=== PATIENT | female | born 1980 | race Caucasian/White ===

== ENCOUNTER 2017-07-30 10:39 | Emergency (ER) | payer OTHER ==
[~2017-07-30] VITALS: Ht 160 cm; Wt 59.1 kg
[~2017-07-30 10:39] MED LIST: CLX20 PO; LEVO1IUD2 INT UTER; OMEP20TA14 PO; RANI150T85 PO
[2017-07-30] MEDS ORDERED: SODIUM CHLORIDE 0.9% 1000ML 1,000 ML IV STA ×2 (10:45)
[2017-07-30 10:52] VITALS: TEMP 36.8; Ht 160 cm; Wt 59.1 kg
[2017-07-30] MEDS ORDERED: METOPROLOL TARTRATE 1 MG/ML VIAL IV STA (10:55)
[2017-07-30 10:59] LABS: BASO % 0.5 %; BASO ABS # 0.04 K/uL (0-0.2); EOS % 1.8 %; EOS ABS # 0.14 K/uL (0-0.5); HEMATOCRIT 43.1 % (37-47); HEMOGLOBIN 15.3 g/dL (12.0-16.0); IG# 0.02 K/uL (0.00-0.02); LYMPH % 22.3 %; LYMPH ABS # 1.72 K/uL (1.2-3.4); MEAN CELL VOLUME 91.1 fL (80-100); MEAN CORPUSCULAR HEMOGLOBIN 32.3 pg (25-34); MEAN CORPUSCULAR HGB CONC 35.5 g/dl (32-36); MEAN PLATELET VOLUME 10.3 fL (7.4-10.4); MONO % 7.8 %; NEUT % 67.3 %; NEUT ABS # 5.19 K/uL (1.4-6.5); PLATELET COUNT 216 K/uL (130-400); RED CELL DISTRIBUTION WIDTH CV 12.5 % (11.5-14.5); RED CELL DISTRIBUTION WIDTH SD 41.9 fL (36.4-46.3); WHITE BLOOD COUNT 7.71 K/uL (4.8-10.8)
[2017-07-30 11:11] LABS: INR 1.1 (0.9-1.1); PTT PATIENT 27.8 SECONDS (21.0-31.0)
--- NOTE | 2017-07-30 11:13 | DIAGNOSTIC IMAGING REPORT ---
CHEST ONE VIEW PORTABLE CLINICAL HISTORY: EVALUATE WEAKNESS dyspnea COMPARISON STUDY: 12/12/2011 FINDINGS: The bones soft tissues and hemidiaphragms are normal. The cardiomediastinal silhouette is normal. The lungs are clear. The pulmonary vasculature is normal. IMPRESSION: Negative chest. The above report was generated using voice recognition software. It may contain grammatical, syntax or spelling errors. Electronically signed by: Stefan Cooper M.D. 07/30/2017 11:12 AM Dictated Date/Time: 07/30/2017 11:11 AM
[2017-07-30 11:17] LABS: ISTAT CREATININE 0.8 mg/dl (0.6-1.3); ISTAT IONIZED CALCIUM 1.1 mmol/l (1.12-1.32); ISTAT POTASSIUM 4.1 mEq/L (3.3-5.0)
[2017-07-30 11:19] LABS: ALBUMIN 3.7 gm/dl (3.4-5.0); ALT/SGPT 22 U/L (12-78); AST/SGOT 15 U/L (15-37); BLOOD UREA NITROGEN 22 mg/dl (7-18); CALCIUM 8.3 mg/dl (8.5-10.1); CARBON DIOXIDE 22 mmol/L (21-32); CREATININE 0.95 mg/dl (0.60-1.20); GLUCOSE 202 mg/dl (70-99); POTASSIUM 3.3 mmol/L (3.5-5.1); SODIUM 134 mmol/L (136-145)
[2017-07-30] MEDS ORDERED: CITA10TA8 PO (11:26)
[2017-07-30 11:30] LABS: ALKALINE PHOSPHATASE 99 U/L (45-117); CKMB 1.2 ng/ml (0.5-3.6)
[2017-07-30] MEDS ORDERED: FENTANYL CITRATE INJ 50 MCG/1 ML 2 ML VIAL ONE (12:45)
[2017-07-30] MEDS ORDERED: MIDAZOLAM HCL 1 MG/ML 2ML VIAL ONE (12:45)
[2017-07-30] MEDS ORDERED: HEPARIN SOD (PORCINE) 1000 UNIT/ML 10 ML VIAL ONE (12:45)
[2017-07-30] MEDS ORDERED: NiCARDipine HCL INJ 2.5 MG/ML 10 ML AMP ONE (12:45)
[2017-07-30] MEDS ORDERED: NITROGLYCERIN/D5W 100MCG/ML 20ML SYR ONE (12:46)
[2017-07-30 12:53] VITALS: O2SAT 100
[2017-07-30] MEDS ORDERED: SODIUM CHLORIDE 0.9% 1000ML 1,000 ML IV SCH ×2 (12:54→13:58)
--- NOTE | 2017-07-30 12:54 | Pre Sedation Assessment ---
Pre Sedation Assessment General Date of Sedation: July 30, 2017. Vital Signs Past 12 Hours Date Time Temp Pulse Resp B/P (MAP) Pulse Ox O2 Delivery O2 Flow Rate FiO2 07/30/17 12:14 84 18 118/71 99 Room Air 07/30/17 11:18 92 16 113/77 100 Room Air 07/30/17 11:14 108 16 109/68 99 Room Air 07/30/17 11:12 99 119/74 07/30/17 10:52 100 Room Air 07/30/17 10:52 100 Room Air 07/30/17 10:52 36.8 112 20 126/80 100 Room Air 07/30/17 10:50 115 Review Cardiovascular: regular rate, rhythm Lungs: chest non-tender Pre-Sedation Airway Assessment Smoking Status: Never Smoker Hx of Sleep Apnea: No Hx of difficult intubation: No Short Thick Neck: No Mallampati Classification: Class II (Sft palate,uvula,fauces visib.) ASA Classification: Class II NPO Status Date of Last Intake of Fluids: July 30, 2017 Time of Last Intake of Fluids: 08:00 Procedure Planning Contraindications for Sedation: None Current Medications Reviewed: Yes Notes The planned sedation has been discussed with the patient. Informed Consent was obtained. I have identified the patient, determined the appropriateness of sedation and have assessed the patient immediately prior to the procedure. All medicine(s) and interventions are by my order.
[2017-07-30] MEDS ORDERED: DC ALL ANTICOAGULANTS ONE (13:00)
--- NOTE | 2017-07-30 13:10 | ECHOCARDIOGRAM REPORT ---
*NOTICE TO RECEIVING [employer] AGENCY This information is strictly Confidential and protected under [place] law. [place] law prohibits you from making any further disclosure of this information unless further disclosure is expressly permitted by the written consent of the person to whom it pertains or is authorized by law. A general authorization for the release of medical or other information is not sufficient for this purpose. Hospital accepts no responsibility if the information is made available to any other person, INCLUDING THE PATIENT. Interpretation Summary * Name: JULIO HOLCOMB Study Date: 07/30/2017 11:22 AM BP: 118/71 mmHg * Patient Location: [facility] HR: 84 * : 1980 (M/d/yyyy) Gender: Female Height: 63 in * Age: 36 yrs Ethnicity: CA Weight: 126 lb * Ordering Physician: Zeke Holman * Performed By: Siomara Lewis RCS * * Reason For Study: Abnormal EKG * BSA: 1.6 m2 * -- Conclusions -- * The left ventricle is normal in size. * There is normal left ventricular wall thickness. * Left ventricular systolic function is normal. * The left ventricular wall motion is normal. * Ejection Fraction = 60-65%. * There is no significant valvular disease * Aortic root is normal in size Procedure Details * A complete two-dimensional transthoracic echocardiogram was performed (2D, M-mode, Doppler and color flow Doppler). Left Ventricle * The left ventricle is normal in size. * There is normal left ventricular wall thickness. * Left ventricular systolic function is normal. * Ejection Fraction = 60-65%. * The left ventricular wall motion is normal. Right Ventricle * The right ventricle is normal in size and function. Atria * The left atrial size is normal. * Right atrial size is normal. * No ASD detected; PFO is not assessed. Mitral Valve * The mitral valve is normal. * There is no mitral valve stenosis. * There is trace mitral regurgitation. Tricuspid Valve * The tricuspid valve is normal. * There is no tricuspid stenosis. * There is trace tricuspid regurgitation. Aortic Valve * The aortic valve is trileaflet. * No hemodynamically significant valvular aortic stenosis. * No aortic regurgitation is present. Pulmonic Valve * The pulmonic valve is not well visualized. Great Vessels * The aortic root is normal size. Pericardium/Pleural * There is no pericardial effusion. Great Vessels * Normal inferior vena cava diameter and respiratory variation suggests normal central venous pressure. MMode 2D Measurements and Calculations IVSd 0.77 cm IVSs 0.99 cm LVIDd 3.9 cm LVIDs 2.5 cm LVPWd 0.75 cm LVPWs 1.1 cm IVS/LVPW 1.0 FS 35.7 % EDV(Teich) 66.7 ml ESV(Teich) 22.8 ml EF(Teich) 65.8 % EDV(cubed) 60.2 ml ESV(cubed) 16.0 ml EF(cubed) 73.4 % % IVS thick 28.7 % % LVPW thick 46.0 % LV mass(C)d 84.0 grams LV mass(C)dI 52.8 grams/m\S\2 LV mass(C)s 68.2 grams LV mass(C)sI 42.9 grams/m\S\2 SV(Teich) 43.9 ml SI(Teich) 27.6 ml/m\S\2 SV(cubed) 44.2 ml SI(cubed) 27.8 ml/m\S\2 Ao root diam 2.8 cm Ao root area 6.2 cm\S\2 ACS 1.1 cm LA dimension 2.6 cm asc Aorta Diam 2.2 cm LA/Ao 0.92 EDV(MOD-sp4) 59.7 ml ESV(MOD-sp4) 16.1 ml EF(MOD-sp4) 73.0 % EDV(MOD-sp2) 56.9 ml ESV(MOD-sp2) 21.2 ml EF(MOD-sp2) 62.8 % SV(MOD-sp4) 43.6 ml SI(MOD-sp4) 27.4 ml/m\S\2 SV(MOD-sp2) 35.7 ml SI(MOD-sp2) 22.5 ml/m\S\2 Doppler Measurements and Calculations MV E max joseph 90.6 cm/sec MV A max joseph 105.7 cm/sec MV E/A 0.86 MV P1/2t max joseph 114.3 cm/sec MV P1/2t 68.8 msec MVA(P1/2t) 3.2 cm\S\2 MV dec slope 486.8 cm/sec\S\2 MV dec time 0.34 sec Ao V2 max 147.3 cm/sec Ao max PG 8.7 mmHg Ao max PG (full) 3.8 mmHg LV V1 max PG 4.9 mmHg LV V1 max 111.1 cm/sec PA V2 max 121.9 cm/sec PA max PG 5.9 mmHg TR max joseph 258.6 cm/sec
[2017-07-30] MEDS ORDERED: METOPROLOL TARTRATE 1 MG/ML VIAL ONE (13:41)
--- NOTE | 2017-07-30 13:41 | CARDIOLOGY CONSULTATION ---
DATE OF CONSULTATION: 07/30/2017 The patient seen and examined in the Emergency Room. PRIMARY CARE PHYSICIAN: Dr. Paige HISTORY OF PRESENT ILLNESS: The patient is a 36-year-old female without a prior cardiac history who per records carries a history of anxiety issues, on chronic Celexa. The patient notes she has been doing very well recently and actually had reduction in anxiolytic therapies, however, notes a recent approximately 1-2 month history of increasing episodes of acute anxiety described as heart pounding in her chest with dizziness and lightheadedness. Symptoms have been interrupting work and becoming more frequent. She notes no overt syncope. Does feel heaviness in her chest when episodes occur. Notes no prior history of cardiac disease. Notes no history of angina or congestive heart failure. Notes no history of rheumatic fever, scarlet fever, renal or hepatic disease. Notes no bleeding difficulties, melena, or hematochezia. The patient today was at work when she suddenly developed lightheadedness and pounding in her chest and was followed by severe heaviness and breathlessness. She was seen very promptly after symptoms. EKG performed demonstrated significant ST depression in inferolateral leads of greater than 2 mm. She was referred to the Emergency Room for further evaluation. Initial EKG demonstrated persistent ST segment changes which resolved on third EKG testing. Initial cardiac enzymes are negative for myocardial infarction or injury. Symptoms resolved on ER presentation without intervention, though she did receive a single dose of IV metoprolol for heart rate control at 2.5 mg. She notes no recent fevers, chills, or sweats. Notes no cough, hoarseness, wheeze, or hemoptysis. Notes no melena or hematochezia. Has been very active as described exercising routinely until the last 2 months , has been a notable decrease in exercise tolerance per the patient. ALLERGIES: CEFTRIAXONE, CLINDAMYCIN. MEDICATIONS: Prior to hospitalization were Celexa 10 mg p.o. every day, Mirena intrauterine device. PAST SURGICAL HISTORY: Notable only for repair of a facial injury as a child. FAMILY HISTORY: Notable for a grandmother with a history of possible premature coronary disease. SOCIAL HISTORY: The patient works as a physician's personalized living assistant. She is a nonsmoker, nondrinker of significance. She is active. PHYSICAL EXAMINATION: VITAL SIGNS: Heart rate is 100, blood pressure is 139/70, O2 saturation is 100% on room air. HEENT EXAMINATION: Normocephalic and atraumatic. Nares without discharge. Throat was clear. NECK: Supple without thyromegaly or lymphadenopathy. There is no jugular venous distention. No carotid bruits. LUNGS: Clear to auscultation. CARDIOVASCULAR EXAMINATION: Regular with normal S1, S2. There is no murmur, gallop, or rub. PMI is nondisplaced. There is no audible murmur or rub. ABDOMEN: Soft, nontender. There is no palpable hepatosplenomegaly, no hepatojugular reflux. EXTREMITIES: Without cyanosis or clubbing. There is no peripheral edema. There are intact distal pulses at 2+/4. There is no abdominal or femoral bruits. NEUROLOGIC: The patient is anxious, but asking questions appropriately. DATA: Laboratory studies performed in the Emergency Room. Initial troponin is negative. White cell count is 7.7, hemoglobin is 15.3. D-dimer is less than 190. TSH is 2.1. HCG is negative. Glucose is mildly elevated at 208. Potassium level was 4.1 with normal renal function. IMPRESSION: This is a 36-year-old female with recent symptoms of heart pounding and palpitations she initially attributed to anxiety issues, now with a profound episode this morning with associated lightheadedness, dizziness, and chest pressure with associated ST depression in inferolateral leads. The patient noted no signs of tachypnea or hyperventilation, no observed tachyarrhythmias were observed other than sinus tachycardia. I discussed the findings in detail with the patient and reviewed echocardiogram in detail with preserved LV function, no acute myocardial infarction, episodic complaints are concerning, especially with decline in exercise capacity. I discussed the options of management. I recommend proceeding with diagnostic cardiac catheterization to exclude ischemic heart disease, of note there is a possibility that this may represent a post-arrhythmia event with a past SVTs, though no documented arrhythmias ever observed or found. The patient is agreeable. We will proceed with a diagnostic cardiac catheterization with medication adjustments will be made depending on results of findings. Procedure and risks explained in detail to the patient and . ARTURO
[2017-07-30] MEDS ORDERED: SODIUM CHLORIDE 0.9% 1000ML 250 ML IV PRN (13:58)
[2017-07-30] MEDS ORDERED: ACETAMINOPHEN 325 MG TAB PO PRN (14:00)
[2017-07-30] MEDS ORDERED: ATROPINE SULFATE 0.1 MG/ML 5ML SYR IV PRN (14:00)
--- NOTE | 2017-07-30 14:03 | [facility] Post Operative Brief Note ---
Preliminary Procedure Note Procedure Date July 30, 2017. Pre-Procedure Diagnosis Cardiothoracic Symptom AUC Score 7 Post-Procedure Diagnosis Normal Coronary Arteries Procedure(s) Performed Coronary Angiography Table Games Floor Supervisor Dr. Panchito Vieyra Apparel Merchandiser(s) Daly Tamayo Estimated Blood Loss <15cc Medication(s) Fentanyl (12.5 mcg IV 3), Heparin, Nicardipine (250 mcg intra-arterial 3), Nitroglycerin (200 mcg intra-arterial 1), Versed (1 mg IV 2), Lidocaine 1% ( Local infiltration) Preliminary Findings Right coronary dominance Normal coronaries with smooth contours Recommendations Medical therapy and/or Counseling Specimens None Fluids (cc crystalloids) 175 cc Anesthesia Start 1324, stop 1350 Procedural Complication(s) None Disposition Plumbing Instructor Holding/Recovery
[2017-07-30] MEDS ORDERED: METO-478 PO (16:22)
--- NOTE | 2017-07-30 16:24 | Discharge Instructions ---
Discharge Instructions Procedure Procedure Date: July 30, 2017. Reason for Visit: Cardiac Assessment. Discharge Discharge Date: July 30, 2017. Discharge Diagnosis: Normal coronary angiogram Last Recorded Wt (Kilograms): 59.100 Anesthesia Post Anesthesia Instructions: If you have had General Anesthesia or IV Sedation: * Do not drive today. * Resume driving when surgeon permits. * Do not make important decisions or sign legal documents today. * Call surgeon for: 1. Temperature elevations greater than 101 degrees F. 2. Uncontrollable pain. 3. Excessive bleeding. 4. Persistent nausea and vomiting. 5. Medication intolerance (nausea, vomiting or rash). * For nausea and vomiting use only clear liquids such as: tea, soda, bouillon until nausea subsides, then gradually increase diet as tolerated. * If you have any concerns or questions, call your surgeon's office. If physician is unavailable and it is an emergency, call 911 or go to the nearest emergency room. Instructions Activity Recommendations: limitations as noted below Return to School/Work: with the following limitations (May return to work on 08/03/2017) Recommended Home Diet: resume previous diet Allergies: Coded Allergies: Ceftriaxone (Verified Allergy, Unknown, ., 09/24/10) Clindamycin (Verified Allergy, Unknown, ., 09/24/10) Provider Instructions ACTIVITY RECOMMENDATIONS: Excess manipulation of the wrist should be avoided for the next 24-48 hours. * No lifting over 2 pounds (approximately a 1/2 gallon of milk) with the utilized arm for 24 hours. * No strenuous activity such as bowling or tennis for 3 days. * Keep the site of the procedure covered with a bandage for 24 hours. *You may shower the day after the procedure. Do not take a tub bath or submerge the puncture site in water for the next 3 days. *Do not operate any motorized equipment for 3 days. SPECIAL CARE INSTRUCTIONS: The site may be slightly bruised and sore following your procedure. Should any of the following occur, contact the DrTyra who performed your procedure. 1. Redness/inflammation, swelling, chills, or fever, or colored drainage at procedure site within 3-7 days after your procedure. 2. Coldness, discoloration, ongoing numbness, severe pain, or swelling. Expect mild tingling of hand and tenderness at the puncture site for up to three days. If this persists beyond three days, or other symptoms develop, notify the Dr. who performed your procedure. BLEEDING: If the procedure site on your wrist begins to bleed, do not panic 1. Place 1 or 2 fingers firmly just slightly above the insertion site to stop the bleeding. You may be able to feel your pulse as you hold pressure. 2. Lift your finger after 5 minutes to see if the bleeding has stopped. 3. Once the bleeding has stopped, gently wipe the wrist area clean with a bandage. * If the bleeding from your wrist does not stop after 10 minutes, or if there is a large amount of bleeding or spurting, call 911 (do not drive yourself to the hospital). SKIN IRRITATION: * You may experience some redness and/or swelling in the area where radiation was administered. If any skin irritation occurs, please contact your family physician. FOLLOW UP VISIT: Keep any scheduled doctor appointments. Follow Up Follow-up with: Dr. Vieyra in 2 weeks hall monitor to be arranged as an outpatient [facility] Recommendations: Call your doctor if: * Temperature above 101 degrees * Pain not relieved by pain medicine ordered * There is increased drainage or redness from any incision * You have any unanswered questions or concerns. Your Doctors Instructions noted above were prepared by provider Panchito Vieyra. Patient Signature Section: Patient Instructions Signature Page Anjana Benson Patient (or Guardian) Signature/Date: I have read and understand the instructions given to me by my caregivers. Caregiver/RN/Doctor Signature/Date: The above-named patient and/or guardian has received patient instructions on this date. + Original Patient Signature Page (only) stays with chart. Please make copy for patient.
[2017-07-30 16:30] VITALS: BP 110/65; PULSE 88; O2SAT 99
[2017-07-30] MEDS ORDERED: METOPROLOL SUCC 25MG EXT REL TAB ONE (16:40)
--- NOTE | 2017-07-30 17:46 | EMERGENCY ROOM VISIT NOTE ---
History Report prepared by [place]: Shashank Dorado Under the Supervision of: Dr. Zeke Holman M.D. First contact with patient: 10:45 Chief Complaint: TACHYCARDIA Stated Complaint: CARDIAC ASSESSMENT History of Present Illness The patient is a 36 year old female who presents to the Emergency Room by EMS with complaints of a near syncopal episode occurring just prior to arrival. She also complains of generalized weakness, chest "pressure" and lightheadedness during the episode. The patient is an O[employer] and was seeing a patient when her symptoms began. Her heart rate was found to be 130 at this time. She then had an ECG which is reported to appear abnormal, and was referred to the ED by cardiology. The patient has a history of anxiety, and states that she feels extremely anxious currently (4/10 in severity). She notes that she has been having increased anxiety every day recently, and is scheduled to see her doctor next month. She has a history of similar symptoms which have been associated with anxiety, but she has a family history of cardiac disease at a young age. Pt denies LOC, headache, fevers, chills, diaphoresis, visual changes, neck pain, tearing pain radiating to the back, personal history or family history of aneurysm or pulmonary embolism, uncontrolled hypertension, breathing difficulties, leg swelling, coagulation abnormalities, prolonged travel, abnormal vaginal bleeding, recent surgery or immobilization, nausea, vomiting, abdominal pain, melena, hematochezia, urinary symptoms, numbness, lymphadenopathy, rash, or other complaints. She has an IUD in place. She notes that she had a brief episode of "sharp" pain to her chest three days ago. Source of History: patient Onset: Just prior to arrival Quality: other (near-syncope) Timing: other (episode) Associated Symptoms: + chest pain ("pressure"), + weakness (generalized) Note: The patient also complains of lightheadedness during the episode. Review of Systems See HPI for pertinent positives and negatives. A total of ten systems were reviewed and were otherwise negative. Past Medical & Surgical Medical Problems: (1) Abdominal pain (2) Anxiety (3) UTI (urinary tract infection) Family History No pertinent family history stated. Social History Smoking Status: Never Smoker Housing Status: lives with family Occupation Status: employed Current/Historical Medications Scheduled Citalopram Hydrobromide (Celexa), 1 TAB PO DAILY Levonorgestrel (Iud) (Mirena), 1 INT UTER CONTINOUS Metoprolol Succinate (Toprol Xl), 12.5 MG PO DAILY Allergies Coded Allergies: Ceftriaxone (Verified Allergy, Unknown, ., 09/24/10) Clindamycin (Verified Allergy, Unknown, ., 09/24/10) Physical Exam Vital Signs Date Time Temp Pulse Resp B/P (MAP) Pulse Ox O2 Delivery O2 Flow Rate FiO2 07/30/17 16:30 88 18 96/62 (73) 99 Room Air 110/65 (80) 07/30/17 16:00 90 18 96/62 (73) 98 Room Air 07/30/17 15:45 90 18 100/52 (68) 98 Room Air 07/30/17 15:30 87 18 97/52 (67) 98 Room Air 07/30/17 15:15 92 18 98/50 (66) 98 Room Air 07/30/17 15:00 94 18 100/51 (67) 98 Room Air 07/30/17 14:45 89 18 94/59 (71) 96 Room Air 07/30/17 14:30 91 18 97/55 (69) 96 Room Air 07/30/17 14:15 92 18 95/54 (68) 96 Room Air 07/30/17 14:00 96 18 97/55 (69) 96 Room Air 07/30/17 13:50 99 18 103/43 (63) 95 Room Air 07/30/17 12:53 113 18 139/71 100 Room Air 07/30/17 12:14 84 18 118/71 99 Room Air 07/30/17 11:18 92 16 113/77 100 Room Air 07/30/17 11:14 108 16 109/68 99 Room Air 07/30/17 11:12 99 119/74 07/30/17 10:52 100 Room Air 07/30/17 10:52 100 Room Air 07/30/17 10:52 36.8 112 20 126/80 100 Room Air 07/30/17 10:50 115 Physical Exam GENERAL: Awake, alert, mildly anxious-appearing, in no distress HENT: Normocephalic, atraumatic. Oropharynx unremarkable. EYES: Normal conjunctiva. Sclera non-icteric. NECK: Supple. No nuchal rigidity. FROM. No masses. No thyromegaly. RESPIRATORY: Clear to auscultation. No wheezes. No rales. Normal respiratory effort. CARDIAC: Borderline tachycardic rate. Normal rhythm. No murmurs. No rubs. Extremities warm and well perfused. Pulses equal. No JVD. GI: Soft, non-distended. No tenderness to palpation. No rebound or guarding. No masses. RECTAL: Deferred. MUSCULOSKELETAL: Atraumatic. Chest examination reveals no tenderness. The back is symmetrical on inspection without obvious abnormality. There is no CVA tenderness to palpation. No joint edema. LOWER EXTREMITIES: Calves are equal size bilaterally and non-tender. No edema. No discoloration. NEURO: Normal sensorium. No sensory or motor deficits noted. SKIN: No rash or jaundice noted. Medical Decision & Procedures ER Provider Diagnostic Interpretation: Radiology results as stated below per my review and radiologist interpretation: CHEST ONE VIEW PORTABLE FINDINGS: The bones soft tissues and hemidiaphragms are normal. The cardiomediastinal silhouette is normal. The lungs are clear. The pulmonary vasculature is normal. IMPRESSION: Negative chest. The above report was generated using voice recognition software. It may contain grammatical, syntax or spelling errors. Electronically signed by: Stefan Cooper M.D. 07/30/2017 11:12 AM Laboratory Results 07/30/17 10:39 Red Blood Count 4.73, Mean Corpuscular Volume 91.1, Mean Corpuscular Hemoglobin 32.3, Mean Corpuscular Hemoglobin Concent 35.5, Mean Platelet Volume 10.3, Neutrophils (%) (Auto) 67.3, Lymphocytes (%) (Auto) 22.3, Monocytes (%) (Auto) 7.8, Eosinophils (%) (Auto) 1.8, Basophils (%) (Auto) 0.5, Neutrophils # (Auto) 5.19, Lymphocytes # (Auto) 1.72, Monocytes # (Auto) 0.60, Eosinophils # (Auto) 0.14, Basophils # (Auto) 0.04 07/30/17 10:39 Test 07/30/17 10:39 07/30/17 11:04 07/30/17 11:42 White Blood Count 7.71 K/uL (4.8-10.8) Red Blood Count 4.73 M/uL (4.2-5.4) Hemoglobin 15.3 g/dL (12.0-16.0) Hematocrit 43.1 % (37-47) Mean Corpuscular Volume 91.1 fL (80-100) Mean Corpuscular Hemoglobin 32.3 pg (25-34) Mean Corpuscular Hemoglobin Concent 35.5 g/dl (32-36) Platelet Count 216 K/uL (130-400) Mean Platelet Volume 10.3 fL (7.4-10.4) Neutrophils (%) (Auto) 67.3 % Lymphocytes (%) (Auto) 22.3 % Monocytes (%) (Auto) 7.8 % Eosinophils (%) (Auto) 1.8 % Basophils (%) (Auto) 0.5 % Neutrophils # (Auto) 5.19 K/uL (1.4-6.5) Lymphocytes # (Auto) 1.72 K/uL (1.2-3.4) Monocytes # (Auto) 0.60 K/uL (0.11-0.59) Eosinophils # (Auto) 0.14 K/uL (0-0.5) Basophils # (Auto) 0.04 K/uL (0-0.2) RDW Standard Deviation 41.9 fL (36.4-46.3) RDW Coefficient of Variation 12.5 % (11.5-14.5) Immature Granulocyte % (Auto) 0.3 % Immature Granulocyte # (Auto) 0.02 K/uL (0.00-0.02) Prothrombin Time 11.1 SECONDS (9.0-12.0) Prothromb Time International Ratio 1.1 (0.9-1.1) Activated Partial Thromboplast Time 27.8 SECONDS (21.0-31.0) Partial Thromboplastin Ratio 1.1 D-Dimer < 190 ug/L FEU (0-500) Est Creatinine Clear Calc Drug Dose 68.3 ml/min Estimated GFR () 89.9 Estimated GFR (Non- 77.6 BUN/Creatinine Ratio 22.9 (10-20) Calcium Level 8.3 mg/dl (8.5-10.1) Magnesium Level 2.1 mg/dl (1.8-2.4) Total Bilirubin 0.7 mg/dl (0.2-1) Direct Bilirubin 0.2 mg/dl (0-0.2) Aspartate Amino Transf (AST/SGOT) 15 U/L (15-37) Alanine Aminotransferase (ALT/SGPT) 22 U/L (12-78) Alkaline Phosphatase 99 U/L (45-117) Total Creatine Kinase 55 U/L (26-192) Creatine Kinase MB 1.2 ng/ml (0.5-3.6) Creatine Kinase MB Ratio 2.2 (0-3.0) Troponin I < 0.015 ng/ml (0-0.045) Total Protein 7.0 gm/dl (6.4-8.2) Albumin 3.7 gm/dl (3.4-5.0) Thyroid Stimulating Hormone (TSH) 2.170 uIu/ml (0.300-4.500) Human Chorionic Gonadotropin, Qual NEG (NEG) Bedside Hemoglobin 13.9 g/dl (12.0-16.0) Bedside Hematocrit 41 % (37-47) Bedside Sodium 139 mEq/L (135-144) Bedside Potassium 4.1 mEq/L (3.3-5.0) Bedside Chloride 102 mEq/L (101-112) Bedside Total CO2 24 mEq/l (24-31) Anion Gap 17.0 mmol/L (16-25) Bedside Blood Urea Nitrogen 27 mg/dl (7-18) Bedside Creatinine 0.8 mg/dl (0.6-1.3) Bedside Glucose (other) 208 mg/dl (70-99) Bedside Ionized Calcium (Elisha) 1.10 mmol/l (1.12-1.32) Urine Color YELLOW Urine Appearance CLEAR (CLEAR) Urine pH 6.0 (4.5-7.5) Urine Specific [place] 1.019 (1.000-1.030) Urine Protein NEG (NEG) Urine Glucose (UA) NEG (NEG) Urine Ketones NEG (NEG) Urine Occult Blood NEG (NEG) Urine Nitrite NEG (NEG) Urine Bilirubin NEG (NEG) Urine Urobilinogen NEG (NEG) Urine Leukocyte Esterase NEG (NEG) Laboratory results reviewed by me Medications Administered Medications (Trade) Dose Ordered Sig/Nubia Route Start Time Stop Time Status Last Admin Dose Admin Sodium Chloride 1,000 ml @ 125 mls/hr Q8H STAT IV 07/30/17 10:45 07/30/17 17:12 DC 07/30/17 12:22 125 MLS/HR Sodium Chloride 1,000 ml @ 999 mls/hr Q1H1M STAT IV 07/30/17 10:45 07/30/17 11:45 DC 07/30/17 11:12 999 MLS/HR Metoprolol Tartrate (Lopressor Iv) 2.5 mg NOW STAT IV 07/30/17 10:55 07/30/17 10:57 DC 07/30/17 11:12 2.5 MG Midazolam HCl (Versed Inj) 2 mg STK-MED ONCE .ROUTE 07/30/17 12:45 07/30/17 12:46 DC 07/30/17 12:45 2 MG Fentanyl Citrate (Fentanyl Inj) 100 mcg STK-MED ONCE .ROUTE 07/30/17 12:45 07/30/17 12:46 DC 07/30/17 12:45 37.5 MCG Heparin Sodium (Porcine) (Heparin Iv Bolus) 10,000 unit STK-MED ONCE .ROUTE 07/30/17 12:45 07/30/17 12:46 DC 07/30/17 12:45 5,000 UNIT Metoprolol Tartrate (Lopressor Iv) 5 mg STK-MED ONCE .ROUTE 07/30/17 13:41 07/30/17 13:42 DC 07/30/17 13:41 2.5 MG ECG Per My Interpretation Indication: other (near-syncope) Rate (beats per minute): 113 Rhythm: sinus tachycardia Findings: nonspecific-ST abn, ST depression (mild, inferior and anterolateral) Comparison ECG Date: Pre-hospital Change: ST elevations in V1 and V2 have resolved. ST segments now appears less depressed. Repeat ECG shows a normal sinus rhythm with a rate of [address] elevations, or PVCs seen. Resolution of ST depressions compared with prior ECG. ED Course 1049: The patient was evaluated in room B8. A complete history and physical exam was performed. Ordered Sodium Chloride 1000 ml @ 125 mls/hr IV, Sodium Chloride 1000 ml @ 999 mls/hr IV. 1055: Ordered Lopressor 2.5 mg IV. 1152: I checked in on the patient. She is currently having her echocardiogram done. She is feeling better. 1207: I spoke with Dr. Vieyra at bedside. He is seeing the patient. 1254: Ordered Sodium Chloride 1000 ml @ 50 mls/hr IV. 1305: The patient was taken to the clinical laboratory technologist by Dr. Vieyra of Cardiology. Medical Decision Prior records/ancillary studies reviewed. Triage Nursing notes reviewed and agree them. Additional history obtained from cardiology. The patient's history was concerning for palpitations and abnormal ECG. Differential diagnosis: Etiologies such as electrolyte abnormality, cardiac dysrhythmia, thyroid dysfunction, pulmonary embolism, infection, gastrointestinal, as well as others were entertained. Physical examination: Benign as above. ER treatment provided: Cardiac monitoring. Normal saline hydration IV Lopressor 2.5 mg On reassessment the patient felt better. Diagnostic interpretation by me: The electrocardiogram reviewed from the clinic was very concerning for ST segment changes. ST segments were much improved here. Repeat ECG here showed resolution. The labs revealed an unremarkable CBC, chemistry panel, cardiac markers and d- dimer. Imaging studies: Chest x-ray as above. Consultation: A consultation was placed with [facility], Dr. Vieyra. The case was discussed and diagnostics were reviewed. The patient was evaluated in the ER for further treatment. Medication Reconcilliation Current Medication List: was personally reviewed by me Blood Pressure Screening Patient's blood pressure: Normal blood pressure Blood pressure disposition: Did not require urgent referral Consults Time Called: 1102 Consulting Physician: Dr. Vieyra - Cardiology Returned Call: [phone] Discussed the patient's case. An echocardiogram was ordered for the patient. Dr. Vieyra will come evaluate the patient in the ED after he finishes his current procedure. Impression Primary Impression: Tachycardia Additional Impression: Acute electrocardiogram changes Scribe Attestation The scribe's documentation has been prepared under my direction and personally reviewed by me in its entirety. I confirm that the note above accurately reflects all work, treatment, procedures, and medical decision making performed by me. Departure Information Dispostion Other (Taken to the clinical laboratory technologist) Prescriptions Metoprolol Succinate (TOPROL XL) 25 Mg Tab 12.5 MG PO DAILY for 30 Days, #15 TAB Prov: Panchito Vieyra M.D. 07/30/17 Referrals Mohsen Figueroa D.O. (PCP) Patient Instructions My [facility] [address] Problem Qualifiers
--- NOTE | 2017-07-31 01:23 | CARDIAC CATH REPORT ---
PRIMARY CARE PHYSICIAN: Dr. Paige. INDICATIONS: Acute chest pain with dynamic ST segment changes. PROCEDURE: Coronary angiography. BRIEF CARDIAC HISTORY: The patient is a 36-year-old female who suffered acute onset tachy-palpitation, chest heaviness and pressure with associated inferolateral ST depression greater than 2 mmHg while at work and in ER. EKG abnormalities are normalized with 2.5 mg IV metoprolol and slowing of heart rate. The patient has had episodic events similar to this with substantial decline in functional capacity now class 2-3, given persistent symptoms, dynamic ST segment changes and recurrent events. The patient is referred for diagnostic cardiac catheterization to exclude underlying ischemic heart disease, preserved ejection fraction noted on echocardiogram prior to procedure. ACCESS: Right radial artery. CATHETERS: A 6-[place] short glide sheath, 5-[place] JL 3.5, 5-[place] JR 5. CONTRAST: Nonionic x64 mL. IV FLUIDS: 175 mL normal saline. SEDATION: Start time 1324, end time 1350. SUPERVISING: William Centeno RN. MEDICATIONS: The patient received for sedation 1 mg IV Versed x2 and fentanyl 12.5 mcg x3. Local access site was anesthetized locally with 1% lidocaine. After arterial sheath was inserted, the patient received 250 mcg of nicardipine. This was repeated twice more with an additional 200 mcg of intra-arterial nitroglycerin due to mild forearm arterial spasm. RADIATION EXPOSURE: 3.4 minutes of fluoroscopy time, 267 milligrays, DAP score 1630. RESULTS: CORONARY ANGIOGRAPHY: Coronary anatomy is right dominant. LEFT MAIN: Left main is of normal length and caliber and trifurcates to give rise to left anterior descending, a large ramus intermedius and left circumflex. There is no disease in the left main. LEFT ANTERIOR DESCENDING: Left anterior descending is type 3 in distribution, gives rise to 2 small diagonal poor inches in its mid portion. Two large septal branches. There is no disease in the left anterior descending. LEFT CIRCUMFLEX: Left circumflex consists of a single obtuse marginal and is free of disease. RIGHT CORONARY ARTERY: The right coronary artery is dominant in distribution, modest in caliber and gives rise to a right ventricular branch, early takeoff posterior descending artery and 2 small posterior ventricular branches. There is no disease in the right coronary artery. LEFT VENTRICULAR ANGIOGRAPHY: Not performed. HEMODYNAMICS: Initial aortic root pressure is 102/56 with a mean of 74. Following completion of study and medication administration, final pressure was 85/59 with a mean of 71. Of note, the patient was relatively tachycardic throughout the procedure and did receive a 2.5 mg IV metoprolol in addition to above medications for rate control. FINAL IMPRESSION: 1. Normal right dominant coronary anatomy. 2. Sinus tachycardia. MTDD
[2017-07-31] MEDS ORDERED: METO25TA3 PO (05:08)
[2017-07-31] MEDS ORDERED: POTA10CA28 PO (15:43)
[2017-08-01] MEDS ORDERED: METO25TA3 PO (16:47)
== END 2017-07-30 16:36 | disposition home or self-care (01) ==
LOC: EDBD 10:39 → C.EDB 10:41
DX: R00.0 Tachycardia, unspecified (principal); R94.31 Abnormal electrocardiogram [ECG] [EKG]; Z79.899 Other long term (current) drug therapy; Z88.1 Allergy status to other antibiotic agents; Z82.49 Family history of ischemic heart disease and other diseases of the circulatory system

== ENCOUNTER 2017-07-31 03:19 | Observation (INO) | payer OTHER ==
[~2017-07-31] VITALS: Ht 160 cm; Wt 56.0 kg
[~2017-07-31 03:19] MED LIST changes: +CITA10TA8 PO; -CLX20 PO; +METO-478 PO; -OMEP20TA14 PO; -RANI150T85 PO
[2017-07-31] MEDS ORDERED: LORAZEPAM 2 MG/ML 1 ML VIAL IV STA (03:44)
[2017-07-31] MEDS ORDERED: SODIUM CHLORIDE 0.9% 1000ML 1,000 ML IV ONE (03:45)
[2017-07-31 04:32] LABS: BASO % 0.4 %; BASO ABS # 0.03 K/uL (0-0.2); EOS % 0.6 %; EOS ABS # 0.05 K/uL (0-0.5); HEMATOCRIT 44.5 % (37-47); HEMOGLOBIN 15.9 g/dL (12.0-16.0); IG# 0.01 K/uL (0.00-0.02); LYMPH % 16.7 %; LYMPH ABS # 1.33 K/uL (1.2-3.4); MEAN CORPUSCULAR HEMOGLOBIN 32.5 pg (25-34); MEAN CORPUSCULAR HGB CONC 35.7 g/dl (32-36); MEAN PLATELET VOLUME 10.3 fL (7.4-10.4); MONO % 7.7 %; MONO ABS # 0.61 K/uL (0.11-0.59); NEUT % 74.5 %; NEUT ABS # 5.92 K/uL (1.4-6.5); PLATELET COUNT 202 K/uL (130-400); RED CELL DISTRIBUTION WIDTH CV 12.5 % (11.5-14.5); RED CELL DISTRIBUTION WIDTH SD 41.8 fL (36.4-46.3); WHITE BLOOD COUNT 7.95 K/uL (4.8-10.8)
[2017-07-31] MEDS ORDERED: OPTIRAY 320 IV PRN (05:00)
[2017-07-31] MEDS ORDERED: METO25TA3 PO (05:08)
[2017-07-31 05:09] LABS: ALBUMIN 4.1 gm/dl (3.4-5.0); CALCIUM 8.5 mg/dl (8.5-10.1); CREATININE 0.82 mg/dl (0.60-1.20)
[2017-07-31 05:12] LABS: TOTAL PROTEIN 7.3 gm/dl (6.4-8.2)
[2017-07-31 05:23] LABS: PTT PATIENT 28.7 SECONDS (21.0-31.0)
[2017-07-31] MEDS ORDERED: PROCHLORPERAZINE INJ 5 MG in SYRINGE 4 ML IV PRN (05:30)
[2017-07-31] MEDS ORDERED: LORAZEPAM 2 MG/ML 1 ML VIAL IV PRN (05:30)
[2017-07-31] MEDS ORDERED: TRAMADOL HCL 50 MG TAB PO PRN (05:30)
[2017-07-31] MEDS ORDERED: hydrOXYzine HCL 10 MG TAB PO PRN (05:30)
[2017-07-31] MEDS ORDERED: ACETAMINOPHEN 325 MG TAB PO PRN (05:30)
[2017-07-31] MEDS ORDERED: MoRPHine SULFATE 2 MG/ML CARP IV PRN (05:30)
[2017-07-31] MEDS ORDERED: POTASSIUM CHLORIDE 10 MEQ TABCR PO STA (05:34)
[2017-07-31] MEDS ORDERED: METOPROLOL SUCC 25MG EXT REL TAB PO STA (05:35)
[2017-07-31 06:00] VITALS: BP 114/69; PULSE 92; TEMP 36.8; O2SAT 98; Ht 160 cm; Wt 56.0 kg
[2017-07-31] MEDS ORDERED: IV FLUIDS COMPLETED PRN (06:00)
--- NOTE | 2017-07-31 06:19 | EMERGENCY ROOM VISIT NOTE ---
History First contact with patient: 03:28 Chief Complaint: CHEST PAIN Stated Complaint: PALPITATIONS Nursing Triage Summary: Pt arrives into room with left side chest pressure, weakness. Pt was at home trying to rest, states she hasn't been able to sleep, "too anxious." Developed left side chest pressure/dizziness, felt her heart beating rapidly. Pt was at work this morning and felt SOB/weakness/dizziness/faint, came to ER, was in SVT. Seen by cardio and had cardiac catheterization and echo-negative results. Pt shaking in room, states she gets very anxious. Was told to come back in if symptoms came back. History of Present Illness The patient is a 36 year old female who presents to the Emergency Room with complaints of left-sided chest pain and palpitations that began less than 1 hour ago. The patient has had a recent significant cardiac workup after similar symptoms yesterday. 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 She began having chest discomfort symptoms while at work, and went to the cardiology suite, where her EKG was abnormal. The patient was sent to the ER for further care and evaluation. She ultimately had essentially negative labs, negative echocardiogram, and negative cardiac catheterization. The patient went home and was doing well after the workup, however her symptoms returned tonight and seem worse than previous. The patient has not had fever or chills. She is not having nausea, vomiting, or abdominal pain. She rates her discomfort a 6/10. She reports a history of anxiety in the past, but is otherwise healthy. She rates her discomfort a 5/10. Review of Systems More than 10 systems were reviewed and otherwise negative with the exception of history of present illness. Past Medical/Surgical History Medical Problems: (1) Abdominal pain (2) Anxiety (3) Palpitations (4) UTI (urinary tract infection) Family History History of premature cardiac disease Social History Smoking Status: Never Smoker Housing Status: lives with family Occupation Status: employed Current/Historical Medications Scheduled Citalopram Hydrobromide (Celexa), 10 MG PO DAILY Levonorgestrel (Iud) (Mirena), 1 INT UTER CONTINOUS Metoprolol Succ (Toprol Xl) (Toprol-Xl), 12.5 MG PO DAILY Physical Exam Vital Signs Date Time Temp Pulse Resp B/P (MAP) Pulse Ox O2 Delivery O2 Flow Rate FiO2 5/4/18 04:29 93 07/31/17 04:19 89 24 07/31/17 04:00 108/71 07/31/17 03:46 98 Room Air 07/31/17 03:30 120/67 07/31/17 03:24 36.8 120 19 125/80 96 Room Air Physical Exam VITALS: Vitals are noted on the nurse's note and reviewed by myself. Vital signs with tachycardia GENERAL: Well-developed, well-nourished, anxious appearing female who appears mildly uncomfortable on examination. NECK: Supple without nuchal rigidity. No lymphadenopathy. No thyromegaly. Cervical spine is nontender. HEART: Tachycardic rate with regular rhythm LUNGS: Clear to auscultation bilaterally without wheezes, rales or rhonchi. No retractions or accessory muscle use. ABDOMEN: Positive normal bowel sounds x 4. Soft, nontender, without masses or organomegaly. No guarding or rebound tenderness. MUSCULOSKELETAL: No muscle atrophy, erythema, or edema noted. Full range of motion in all extremities. NEURO: Patient was alert and oriented to person place and time. CN II through XII grossly intact. Medical Decision & Procedures ER Provider Diagnostic Interpretation: Preliminary Findings Only See Final Report For Complete Findings CTA CHEST: No evidence of PE. Lungs are clear. No pleural effusions. No adenopathy. Heart size is normal. Aorta is unremarkable. Laboratory Results 07/31/17 03:30 Red Blood Count 4.89, Mean Corpuscular Volume 91.0, Mean Corpuscular Hemoglobin 32.5, Mean Corpuscular Hemoglobin Concent 35.7, Mean Platelet Volume 10.3, Neutrophils (%) (Auto) 74.5, Lymphocytes (%) (Auto) 16.7, Monocytes (%) (Auto) 7.7, Eosinophils (%) (Auto) 0.6, Basophils (%) (Auto) 0.4, Neutrophils # (Auto) 5.92, Lymphocytes # (Auto) 1.33, Monocytes # (Auto) 0.61, Eosinophils # (Auto) 0.05, Basophils # (Auto) 0.03 07/31/17 03:30 Test 07/31/17 03:30 07/31/17 03:37 07/31/17 04:11 07/31/17 04:28 White Blood Count 7.95 K/uL (4.8-10.8) Red Blood Count 4.89 M/uL (4.2-5.4) Hemoglobin 15.9 g/dL (12.0-16.0) Hematocrit 44.5 % (37-47) Mean Corpuscular Volume 91.0 fL (80-100) Mean Corpuscular Hemoglobin 32.5 pg (25-34) Mean Corpuscular Hemoglobin Concent 35.7 g/dl (32-36) Platelet Count 202 K/uL (130-400) Mean Platelet Volume 10.3 fL (7.4-10.4) Neutrophils (%) (Auto) 74.5 % Lymphocytes (%) (Auto) 16.7 % Monocytes (%) (Auto) 7.7 % Eosinophils (%) (Auto) 0.6 % Basophils (%) (Auto) 0.4 % Neutrophils # (Auto) 5.92 K/uL (1.4-6.5) Lymphocytes # (Auto) 1.33 K/uL (1.2-3.4) Monocytes # (Auto) 0.61 K/uL (0.11-0.59) Eosinophils # (Auto) 0.05 K/uL (0-0.5) Basophils # (Auto) 0.03 K/uL (0-0.2) RDW Standard Deviation 41.8 fL (36.4-46.3) RDW Coefficient of Variation 12.5 % (11.5-14.5) Immature Granulocyte % (Auto) 0.1 % Immature Granulocyte # (Auto) 0.01 K/uL (0.00-0.02) Activated Partial Thromboplast Time 28.7 SECONDS (21.0-31.0) Partial Thromboplastin Ratio 1.1 Anion Gap 6.0 mmol/L (3-11) Est Creatinine Clear Calc Drug Dose 79.2 ml/min Estimated GFR () 107.5 Estimated GFR (Non- 92.7 BUN/Creatinine Ratio 11.2 (10-20) Calcium Level 8.5 mg/dl (8.5-10.1) Magnesium Level 2.1 mg/dl (1.8-2.4) Total Bilirubin 1.1 mg/dl (0.2-1) Aspartate Amino Transf (AST/SGOT) 13 U/L (15-37) Alanine Aminotransferase (ALT/SGPT) 22 U/L (12-78) Alkaline Phosphatase 83 U/L (45-117) Total Protein 7.3 gm/dl (6.4-8.2) Albumin 4.1 gm/dl (3.4-5.0) Globulin 3.2 gm/dl (2.5-4.0) Albumin/Globulin Ratio 1.3 (0.9-2) Thyroid Stimulating Hormone (TSH) 3.700 uIu/ml (0.300-4.500) Lyme Disease IgG Antibody NEG (NEG) Lyme Disease IgM Antibody NEG (NEG) Bedside D-Dimer 254 ng/mlFEU (0-450) Bedside Troponin I < 0.030 ng/ml (0-0.045) Urine Color YELLOW Urine Appearance CLEAR (CLEAR) Urine pH 6.5 (4.5-7.5) Urine Specific Loraine 1.013 (1.000-1.030) Urine Protein NEG (NEG) Urine Glucose (UA) NEG (NEG) Urine Ketones TRACE (NEG) Urine Occult Blood NEG (NEG) Urine Nitrite NEG (NEG) Urine Bilirubin NEG (NEG) Urine Urobilinogen NEG (NEG) Urine Leukocyte Esterase TRACE (NEG) Urine WBC (Auto) 1-5 /hpf (0-5) Urine RBC (Auto) 0-4 /hpf (0-4) Urine Hyaline Casts (Auto) 0 /lpf (0-5) Urine Epithelial Cells (Auto) 20-30 /lpf (0-5) Urine Bacteria (Auto) NEG (NEG) Urine Test NEG (NEG) Urine Opiates Screen NEG (NEG) Urine Methadone, Qualitative NEG (NEG) Urine Barbiturates NEG (NEG) Urine Phencyclidine (PCP) Level NEG (NEG) Ur Amphetamine/Methamphetamine NEG (NEG) MDMA (Ecstasy) Screen NEG (NEG) Urine Benzodiazepines Screen POS (NEG) Urine Cocaine Metabolite NEG (NEG) Urine Marijuana (THC) NEG (NEG) Medications Administered Medications (Trade) Dose Ordered Sig/Nubia Route Start Time Stop Time Status Last Admin Dose Admin Sodium Chloride 1,000 ml @ 999 mls/hr Q1H1M ONCE IV 07/31/17 03:45 07/31/17 04:45 DC 07/31/17 03:54 999 MLS/HR Lorazepam (Ativan Inj) 0.5 mg NOW STAT IV 07/31/17 03:44 07/31/17 03:48 DC 07/31/17 03:54 0.5 MG ECG Per My Interpretation Change: Sinus tachycardia @105 bpm Possible Left atrial enlargement Nonspecific ST abnormality Abnormal ECG When compared with ECG of 30-JUL-2017 12:12, ST now depressed in Inferior leads ST now depressed in Lateral leads Nonspecific T wave abnormality now evident in Inferior leads ED Course Physical exam and history were performed. Nursing notes, EMR, and Medication List were personally reviewed. Patient appears to have left-sided chest pain symptoms. EKG was performed and has diffuse ST depression concerning for ischemia especially when compared to previous EKG about 15 hours ago. IV access was established and labs are obtained. The patient was hydrated and medicated as above. The case was discussed with my attending physician, Dr. Damon, who remain closely involved in care and decision-making. Upon evaluating the patient I did contact [facility] cardiology, and spoke directly with Dr. Vieyra. We will ultimately be admitting the patient for further care management, and Dr. Viyera recommended CT angiogram as well as catecholamine blood work. The patient's blood work is as above and was reviewed. She does not have a significantly elevated white blood cell count, gross anemia, bandemia, or significant electrolyte imbalance. Lipase and transaminases are not diagnostic. Lyme disease is negative. Urine is without . Drug of abuse screen is negative. Troponin is negative. CT scan of the chest does not show acute pulmonary etiology for her symptoms. On reevaluation the patient did feel improved after hydration and Ativan. A repeat EKG was performed and was similar, although improving compared to the initial EKG. I discussed the case with Dr Vuong, [facility] hospitalist, who agreed to evaluate the patient here in the department. Please see Dr. Younger's dictation for further patient course, plan, and disposition. The chart was completed utilizing [employer] Speech Voice Recognition Software. Grammatical errors, random word insertions, pronoun errors, and incomplete sentences are an occasional consequence of this system due to software limitations, ambient noise, and hardware issues. Any formal questions or concerns about the content, text, or information contained within the body of this dictation should be directly addressed to the provider for clarification. . Medical Decision Differential diagnosis includes, but is not limited to: Myocardial infarction, dysrhythmia, pericarditis, pneumothorax, aortic aneurysm/dissection, DVT/PE, anxiety, GERD, PUD, electrolyte imbalance, thyroid disorder, pneumonia, bronchitis, pancreatitis, and others Impression Primary Impression: Left sided chest pain Additional Impression: Acute electrocardiogram changes Departure Information Referrals Savage Paige M.D. (PCP) Patient Instructions [facility] Problem Qualifiers
[2017-07-31] MEDS ORDERED: NSS + 20MEQ KCL 1000ML 1,000 ML IV ONE (06:30)
--- NOTE | 2017-07-31 07:14 | DIAGNOSTIC IMAGING REPORT ---
SINGLE VIEW CHEST CLINICAL HISTORY: Atypical chest pain. FINDINGS: An AP, portable, upright chest radiograph is compared to study dated 07/30/2017. The examination is degraded by portable technique and apical lordotic positioning. The cardiomediastinal silhouette is unremarkable. The lungs appear hyperinflated but are otherwise clear. No large pleural effusion or pneumothorax is seen. The bony thorax is grossly intact. IMPRESSION: No active disease in the chest. Electronically signed by: Jose Pino M.D. 07/31/2017 7:12 AM Dictated Date/Time: 07/31/2017 7:12 AM
--- NOTE | 2017-07-31 07:52 | DIAGNOSTIC IMAGING REPORT ---
CT ANGIOGRAM OF THE CHEST CLINICAL HISTORY: Atypical chest pain. COMPARISON STUDY: Chest x-ray dated 07/31/2017. TECHNIQUE: Following the IV administration of 93 cc of Optiray 320, CT angiogram of the chest was performed from the upper abdomen to the thoracic inlet utilizing the pulmonary embolus protocol. Images are reviewed in the axial, sagittal, and coronal planes. 3-D MIPS images are created and assessed. IV contrast was administered without complication. A dose lowering technique was utilized adhering to the principles of ALARA. CT DOSE: 256.51 mGy.cm FINDINGS: Thyroid: Imaged portions of the thyroid gland are normal in size and attenuation. Thoracic aorta: The thoracic aorta is normal in caliber and demonstrates standard 3-vessel arch anatomy. No dissection is seen. Pulmonary vasculature: The pulmonary trunk is normal in caliber. There are no filling defects identified in main, lobar, or segmental pulmonary branches to suggest pulmonary embolus. Heart: The heart is normal in size and configuration, and without pericardial effusion. Lungs and pleural spaces: Small Bochdalek hernias are present at both lung bases. The lungs and pleural spaces are otherwise clear. The trachea and central airways are clear. Mediastinum: There is no mediastinal lymphadenopathy. Arpita: Clear. Axillae: There is no axillary lymphadenopathy. Upper abdomen: Partially visualized upper abdominal viscera is within normal limits. Skeletal structures: No lytic or blastic bony lesions are seen. IMPRESSION: 1. There is no evidence of pulmonary embolus in the main, lobar, or segmental pulmonary arteries. 2. The lungs are clear. Electronically signed by: Jose Pino M.D. 07/31/2017 7:50 AM Dictated Date/Time: 07/31/2017 7:13 AM
[2017-07-31 08:00] VITALS: O2SAT 98
[2017-07-31] MEDS ORDERED: POTASSIUM CHLORIDE 10 MEQ TABCR PO ONE (08:00)
[2017-07-31 08:03] VITALS: BP 93/55; PULSE 86; TEMP 36.9; O2SAT 96
[2017-07-31] MEDS: CITALOPRAM 20 MG TAB PO SCH ×2 (08:13→10:34)
--- NOTE | 2017-07-31 09:37 | HISTORY & PHYSICAL EXAMINATION ---
DATE OF ADMISSION: 07/31/2017 PRIMARY CARE DOCTOR: Dr. Paige. CHIEF COMPLAINT: Chest pressure as per the patient. HISTORY OF PRESENT ILLNESS: History obtained from the patient and records. Medical history significant for anxiety, gastritis as per records, Raynaud disease. In the last 2 months, the patient noted episodic palpitations corresponding with dizziness, lightheadedness, chest heaviness, spontaneously resolving. Patient admits to more anxiety than usual with work and home stress. No fever, no chills, no inordinate caffeine intake or alcohol intake. 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 She was seen at the Cardiology clinic. She was noted to have ST depression in inferolateral leads. Patient sent to the Emergency Room for evaluation. Patient evaluated by [facility] cardiology in the ER. 2D echo showed EF of 55 %, normal LV wall motion. Patient had normal coronaries on cardiac catheterization. Symptoms attributed to anxiety. Patient discharged on Toprol-XL. Zio patch monitoring to be arranged as outpatient. At home, poor appetite. She was in bed last night when she had more pronounced palpitations, left-sided chest pressure with radiation to the left arm. Some shortness of breath, no cough symptoms. Patient brought to the Emergency Room. Noted to be tachycardic. Some improvement of symptoms with IV lorazepam and IVF MEDICAL HISTORY: As above. Cut down on dosage of mood/anxiety pill Celexa to 10 mg in the last few months because of desire to undergo after she gets by the end of the year. SURGICAL HISTORY: She has had facial reconstruction after an animal bite from childhood and dental surgery. MEDICATIONS: Home medications are Celexa, Mirena IUD. ALLERGIES: ALLERGIC TO CLINDAMYCIN AND CEFTRIAXONE. FAMILY HISTORY: There is a family history of heart disease, breast cancer, cervical cancer. PERSONAL/SOCIAL HISTORY: Nonsmoker. No EtOH intake. Currently works as a physician social and human services assistant. REVIEW OF SYSTEMS: As per HPI. All other 10 systems reviewed, all other ROS negative. PHYSICAL EXAMINATION: VITAL SIGNS: Blood pressure was noted to be 125/80, pulse rate 120 later 90, RR 19, temperature 36.8, saturations 97%. GENERAL: Noted to be anxious, in no acute distress. SKIN: Normal color, warm. HEENT: Riva palpebral conjunctivae. No ptosis. Dry oral mucosa. NECK: Supple. No tenderness. HEART: Regular rate and rhythm, no murmur. ABDOMEN: Some distention. Nontender. EXTREMITIES: No edema noted. No tenderness, no gross deformities NEUROLOGIC: Coherent, no facial asymmetry LABORATORY DATA: Hemoglobin was noted to be 15.9, hematocrit 45.4, white cells 11.9, platelets noted to be 202. Sodium 139, potassium 3 CO2 of 24, BUN 9, creatinine 0.8, glucose was noted to be 117. Troponin 0.03. TSH normal UA ketones. EKG as per my interpretation, rate 95, normal sinus rhythm, incomplete right bundle-branch block, nonspecific ST T wave abnormalities. CT-PE study, initial read, no acute pathology. ASSESSMENT: 1. Chest pressure, palpitations Likely secondary to anxiety. Hypokalemia. clinical dehydration contributory to cardiac symptoms. 2. Hyperglycemia Rule out DM PLAN: Observation PCU. Anxiolytic as needed Facilitate a.m. Toprol IV fluids. Replace potassium. Rest of management as per Cardiology. (ER provider already in touch with Dr. Veiyra.) Check hemoglobin A1c DVT prophylaxis SCDs. Full code. MTDD
[2017-07-31 11:27] VITALS: BP 103/67; PULSE 85; TEMP 36.6; O2SAT 97
[2017-07-31] MEDS ORDERED: POTA10CA28 PO (15:43)
--- NOTE | 2017-07-31 15:49 | Discharge Summary ---
Discharge Summary Date of Service July 31, 2017. Discharge Summary Admission Date: July 31, 2017 at 05:06 Discharge Date: July 31, 2017 Discharge Disposition: Home Principal Diagnosis: Palpitations with chest discomfort Procedures: None. Vaccinations: None. Consultations: Cardiology-Dr. Panchito Vieyra Pending Studies/Follow-Up: see instructions below. Medication Reconciliation New Medications: Potassium Chloride (Micro-K Ext Rel) 10 Meq Cap 10 MEQ PO DAILY for 30 Days, #30 CAP Changed Medications: Metoprolol Succ (Toprol Xl) (Toprol-Xl) 25 Mg Tabcr 12.5 MG PO BID for 30 Days, #30 TAB 1 Refill (Changed from: DAILY; Refills: ) Continued Medications: Citalopram Hydrobromide (Celexa) 10 Mg Tab 10 MG PO DAILY Levonorgestrel (Iud) (Mirena) 20 Mcg/24 Hr Iud 1 INT UTER CONTINOUS Admission Information HPI (per Admitting provider): HISTORY OF PRESENT ILLNESS: History obtained from the patient and records. Medical history significant for anxiety, gastritis as per records, Raynaud disease. In the last 2 months, the patient noted episodic palpitations corresponding with dizziness, lightheadedness, chest heaviness, spontaneously resolving. Patient admits to more anxiety than usual with work and home stress. No fever, no chills, no inordinate caffeine intake or alcohol intake. 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 She was seen at the Cardiology clinic. She was noted to have ST depression in inferolateral leads. Patient sent to the Emergency Room for evaluation. Patient evaluated by [facility] cardiology in the ER. 2D echo showed EF of 55 %, normal LV wall motion. Patient had normal coronaries on cardiac catheterization. Symptoms attributed to anxiety. Patient discharged on Toprol-XL. Zio patch monitoring to be arranged as outpatient. At home, poor appetite. She was in bed last night when she had more pronounced palpitations, left-sided chest pressure with radiation to the left arm. Some shortness of breath, no cough symptoms. Patient brought to the Emergency Room. Noted to be tachycardic. Some improvement of symptoms with IV lorazepam and IVF Physical Exam (per Admitting): PHYSICAL EXAMINATION: VITAL SIGNS: Blood pressure was noted to be 125/80, pulse rate 120 later 90, RR 19, temperature 36.8, saturations 97%. GENERAL: Noted to be anxious, in no acute distress. SKIN: Normal color, warm. HEENT: Villanueva palpebral conjunctivae. No ptosis. Dry oral mucosa. NECK: Supple. No tenderness. HEART: Regular rate and rhythm, no murmur. ABDOMEN: Some distention. Nontender. EXTREMITIES: No edema noted. No tenderness, no gross deformities NEUROLOGIC: Coherent, no facial asymmetry Hospital Course 36-year-old female review presented to the ER on the evening of a prior cardiac cath with discharge home with reports of sensation of heart pounding and chest discomfort. She did manifest once again dynamic ST depression in the inferior lateral leads on EKG the as she had the day prior. Cardiac enzymes were drawn and were negative and CT scan of the chest revealed no thromboembolic phenomena. She was maintained on Toprol and appeared more comfortable after an increased dose of this. Cardiology was consulted and recommended continuing Toprol-XL 12.5 mg twice daily. Recommendation was also made to continue weaning of Celexa by her primary Care physician which may be aggravating tachycardia issues. She will follow up with cardiology as an outpatient in 2 weeks time. At time of discharge she was symptom-free, mentating and ambulating at baseline and tolerating p.o. She was hemodynamically stable. She had no events on telemetry overnight. She was discharged in stable condition with close PCP follow-up. Total time spent on discharge = 60 minutes This includes examination of the patient, discharge planning, medication reconciliation, and communication with other providers. [place] [address] Discharge Medical Patient Name: Anjana Benson Unit Number: [id number] Date of : 1980 Patient Status: Admitted Inpatient (obs) Attending Doctor: Janel Castillo DO DI: Medical v5 Discharge Instructions Date of Service July 31, 2017. Admission Reason for Admission: Palpitations Discharge Discharge Diagnosis / Problem: Palpitations,chest discomfort-resolved Discharge Goals Goal(s): Prevent Disease Progression Activity Recommendations Activity Limitations: per Instructions/Follow-up section . Instructions / Follow-Up Instructions / Follow-Up Please continue all medications as instructed. You have been given a small dose of potassium to take daily. You have a follow-up appointment with Dr. Paige on 08/03 @ 8:45am for follow-up of this hospitalization. Please discuss with him the need for repeat bloodwork to assess potassium level at that time. Please follow-up with [facility] Cardiology in two weeks time. Someone from their office will be in touch with you to schedule your appointment. It was a pleasure taking care of you! Call if you have any questions or problems. You can reach a [facility] hospitalist on duty at [facility] 24 hours a day by calling [phone]. Take care of yourself. Janel Castillo, [facility] Hospitalist Current Hospital Diet Patient's current hospital diet: Regular Diet Discharge Diet Recommended Diet: Regular Diet Procedures Procedures Performed: None. Pending Studies Studies pending at discharge: no Laboratory Results Hemoglobin A1c Test 07/31/17 03:30 Range/Units Estimated Average Glucose 97 mg/dl Hemoglobin A1c 5.0 4.5-5.6 % Medical Emergencies . Who to Call and When: Medical Emergencies: If at any time you feel your situation is an emergency, please call 911 immediately. . Non-Emergent Contact Non-Emergency issues call your: Primary Care Provider . . "Provider Documentation" section prepared by Janel Castillo. . Additional Copies To Savage Paige M.D.
[2017-07-31 16:16] VITALS: BP 103/67; PULSE 85; TEMP 36.6; O2SAT 97
--- NOTE | 2017-07-31 17:12 | CARDIOLOGY CONSULTATION ---
DATE OF CONSULTATION: 07/31/2017 For full details, refer to consultation of day prior. The patient represented once again last evening with sensation of heart pounding uncertain "whether it was anxiety or abnormality with chest pressure symptoms." She did manifest once again dynamic ST depression in the inferolateral leads on EKG as per day prior. Cardiac enzymes have once again been negative and CT scan of the chest reveals no thromboembolic phenomena. She is more comfortable after increased dose of Toprol today. Denies any dizziness or lightheadedness. Notes no orthopnea or worsening peripheral edema. ALLERGIES: CEFTRIAXONE AND CLINDAMYCIN. MEDICATIONS: Notable for the addition of Toprol-XL 12.5 mg single dose yesterday; received additional dose last evening and this morning. For further family, social, and surgical histories, please refer to prior cardiac consultation. PHYSICAL EXAMINATION: VITAL SIGNS: Heart rate at time of examination now is 85, reflecting substantial improvement for the patient. Blood pressure is 103/67, O2 saturations 97%. NECK: Thin. There is no jugular venous distention. LUNGS: Clear to auscultation. CARDIOVASCULAR: Regular. There is no S3 gallop. ABDOMEN: Soft, nontender. EXTREMITIES: Without cyanosis or clubbing. There is no peripheral edema. There are intact distal pulses. Right radial puncture sites healing well. LABORATORY DATA: Troponin I once again looked normal, less than 0.015. TSH is 3.7. Glucose on testing today was 117, potassium at 3.0. EKG, on repeat study at 0619 this morning demonstrates sinus rhythm with nonspecific ST lateral changes with ST depression improved. CTA of the chest revealed no abnormalities. IMPRESSION: A 36-year-old female with history of acute anxiety, tachycardia, symptomatic chest pressure with dynamic ST segment changes without obstructive coronary disease. Discussed findings in detail. RECOMMENDATIONS: At this time, will continue to follow closely. Anticipate hospital followup at approximately 2 weeks' time. Would recommend continuing Toprol-XL 12.5 mg twice per day. No additional medications other than potassium supplement 10 mEq a day will be added to regimen. There is room to add possible calcium channel mila in the future. The patient was discussed with primary care physician on weaning of Celexa which may be aggravating tachycardia issues and plan will be made in approximately 2 weeks' time.
[2017-08-01] MEDS ORDERED: METOPROLOL SUCC 25MG EXT REL TAB PO SCH (09:00)
[2017-08-01] MEDS ORDERED: METO25TA3 PO (16:47)
== END 2017-07-31 16:30 | disposition home or self-care (01) ==
LOC: C.EDB 03:20 → C.2T 05:06 → ENRESERV 05:13
PROVIDERS: ADMIT Hospitalist; ATTEND Hospitalist
DX: R00.2 Palpitations (principal); R07.89 Other chest pain; Z79.899 Other long term (current) drug therapy; I73.00 Raynaud's syndrome without gangrene; F41.9 Anxiety disorder, unspecified; Z82.49 Family history of ischemic heart disease and other diseases of the circulatory system; Z80.3 Family history of malignant neoplasm of breast; Z80.49 Family history of malignant neoplasm of other genital organs; Z88.1 Allergy status to other antibiotic agents

== ENCOUNTER 2017-08-22 21:38 | Observation (INO) | payer OTHER ==
[~2017-08-22] VITALS: Ht 160 cm; Wt 55.6 kg
[~2017-08-22 21:38] MED LIST changes: -METO-478 PO; +METO25TA3 PO; +POTA10CA28 PO
[2017-08-22] MEDS ORDERED: SODIUM CHLORIDE 0.9% 1000ML 1,000 ML IV STA (22:05)
[2017-08-22 22:12] LABS: BASO % 0.4 %; BASO ABS # 0.03 K/uL (0-0.2); EOS % 2.1 %; EOS ABS # 0.15 K/uL (0-0.5); HEMATOCRIT 41.7 % (37-47); HEMOGLOBIN 15.1 g/dL (12.0-16.0); IG# 0.02 K/uL (0.00-0.02); LYMPH % 20.9 %; LYMPH ABS # 1.52 K/uL (1.2-3.4); MEAN CELL VOLUME 90.7 fL (80-100); MEAN CORPUSCULAR HEMOGLOBIN 32.8 pg (25-34); MEAN CORPUSCULAR HGB CONC 36.2 g/dl (32-36); MEAN PLATELET VOLUME 9.9 fL (7.4-10.4); MONO % 9.6 %; NEUT % 66.7 %; NEUT ABS # 4.85 K/uL (1.4-6.5); PLATELET COUNT 196 K/uL (130-400); RED CELL DISTRIBUTION WIDTH CV 12.7 % (11.5-14.5); RED CELL DISTRIBUTION WIDTH SD 41.7 fL (36.4-46.3); WHITE BLOOD COUNT 7.27 K/uL (4.8-10.8)
--- NOTE | 2017-08-22 22:26 | DIAGNOSTIC IMAGING REPORT ---
CHEST ONE VIEW PORTABLE CLINICAL HISTORY: Chest pain. COMPARISON STUDY: Chest CT and chest radiograph July 31, 2017. FINDINGS: Lung volumes are at the upper limits of normal. There is no pneumothorax or pleural effusion. There is no consolidation or evidence for pulmonary edema. Cardiac size is normal. Mediastinal contours are normal. IMPRESSION: No acute cardiopulmonary findings. Electronically signed by: Brandon Genao M.D. 08/22/2017 10:24 PM Dictated Date/Time: 08/22/2017 10:23 PM
[2017-08-22 22:44] LABS: BLOOD UREA NITROGEN 15 mg/dl (7-18); CALCIUM 8.7 mg/dl (8.5-10.1); CARBON DIOXIDE 28 mmol/L (21-32); CKMB < 0.5 ng/ml (0.5-3.6); CREATININE 0.85 mg/dl (0.60-1.20); GLUCOSE 118 mg/dl (70-99); POTASSIUM 3.4 mmol/L (3.5-5.1); SODIUM 140 mmol/L (136-145)
[2017-08-22] MEDS ORDERED: ASPIRIN 81 MG CHEW PO STA (22:46)
[2017-08-22] MEDS ORDERED: POTASSIUM CHLORIDE 10 MEQ TABCR PO STA (22:46)
[2017-08-22] MEDS ORDERED: BUSP1TAB46 PO (22:48)
[2017-08-22] MEDS ORDERED: LORA-741 PO (22:48)
[2017-08-22] MEDS ORDERED: METO25TA4 PO ×2 (22:48)
[2017-08-22] MEDS ORDERED: METOPROLOL TARTRATE 1 MG/ML VIAL IV STA (22:55)
[2017-08-22] MEDS ORDERED: LORAZEPAM 2 MG/ML 1 ML VIAL IV STA (23:04)
[2017-08-22] MEDS ORDERED: SODIUM CHLORIDE 0.9% 1000ML 1,000 ML IV SCH (23:20)
[2017-08-22] MEDS ORDERED: MAGNESIUM HYDROXIDE SUSP 30 ML UDC PO PRN (23:30)
[2017-08-22] MEDS ORDERED: ACETAMINOPHEN 325 MG TAB PO PRN (23:30)
[2017-08-22] MEDS ORDERED: ALUMINUM/MAGNESIUM/SIMETH (MAALOX MAX) 30 ML UDC PO PRN (23:30)
[2017-08-22] MEDS ORDERED: ONDANSETRON INJ 2 MG/ML 2 ML VIAL IV PRN (23:30)
[2017-08-22] MEDS ORDERED: LORAZEPAM 2 MG/ML 1 ML VIAL IV PRN (23:30)
[2017-08-23 00:24] VITALS: BP 105/77; PULSE 90; TEMP 36.9; O2SAT 97; Ht 160 cm; Wt 55.6 kg
--- NOTE | 2017-08-23 00:42 | History and Physical ---
History & Physical Date & Time of Service: August 23, 2017 at 00:26 Chief Complaint: Acute Electrocardiogram Changes, Palpitations Primary Care Physician: Savage Paige M.D. History of Present Illness Source: patient, family, clinic records, hospital records This is a 36 year old female with a past medical history of anxiety - recently admitted in early July for palpitations/tachycardia - presents with similar symptoms. On July 31, she had a cardiac catheterization performed because of EKG changes ( ST depression noted on inferior leads). No acute findings at that time; noted to have tachycardia and hypokalemia - was started on Toprol and Potassium. Primary care started patient on Ativan PRN and BuSpar for anxiety. Presented to the ED again with palpitations/tachycardia. EKG changes again noted. Cardiology called - recommendation made to control HR. Past Medical/Surgical History Medical Problems: (1) Abdominal pain (2) Acute electrocardiogram changes (3) Anxiety (4) Left sided chest pain (5) Palpitations (6) Tachycardia (7) UTI (urinary tract infection) Social History Smoking Status: Never Smoker Occupational Status: employed Immunizations History of Influenza Vaccine: Unknown History of Tetanus Vaccine?: Yes Tetanus Immunization Date: Jan 08, 2011 Allergies Coded Allergies: Ceftriaxone (Verified Allergy, Unknown, ., 08/22/17) Clindamycin (Verified Allergy, Unknown, ., 08/22/17) Home Medications Scheduled Buspirone Hcl (Buspirone Hcl), 7.5 MG PO BID Levonorgestrel (Iud) (Mirena), 1 INT UTER CONTINOUS Metoprolol Succinate (Toprol Xl), 25 MG PO QAM Metoprolol Succinate (Toprol Xl), 12.5 MG PO QPM Potassium Chloride (Micro-K Ext Rel), 10 MEQ PO DAILY Scheduled PRN Lorazepam (Ativan), 0.5 MG PO UD PRN for Anxiety Review of Systems Constitutional: No fever, No chills Eyes: No worsening of vision ENT: No hearing loss Respiratory: No cough, No sputum, No wheezing, No shortness of breath, No dyspnea on exertion, No dyspnea at rest, No hemoptysis Cardiovascular: + chest pain, + palpitations, No edema Abdomen: No pain, No nausea, No vomiting, No diarrhea, No constipation, No GI bleeding Musculoskeletal: No joint pain, No muscle pain Genitourinary - Female: No dysuria, No urinary frequency, No urinary urgency, No urinary incontinence, No urinary retention, No hematuria Neurologic: No memory loss, No weakness, No numbness/tingling, No vertigo, No balance problems Psychiatric: + anxiety, No depression symptoms, No insomnia, No substance abuse Endocrine: No fatigue Hematologic / Lymphatic: No abnormal bleeding/bruising Integumentary: No rash Allergic / Immunologic: No environmental allergies, No seasonal allergies Physical Exam Vital Signs Date Time Temp Pulse Resp B/P (MAP) Pulse Ox O2 Delivery O2 Flow Rate FiO2 08/22/17 23:47 95 18 114/71 96 Room Air 08/22/17 23:02 120 106/79 08/22/17 23:00 120 18 106/79 98 Room Air 08/22/17 22:00 101 18 116/70 98 Room Air 08/22/17 22:00 112 08/22/17 21:55 98 Room Air 08/22/17 21:46 36.7 118 20 142/83 98 Room Air General Appearance: no apparent distress Head: normocephalic, atraumatic Eyes: normal inspection ENT: hearing grossly normal Neck: supple, no adenopathy, thyroid normal, no JVD Respiratory/Chest: chest non-tender, lungs clear, normal breath sounds, no respiratory distress, no accessory muscle use Cardiovascular: regular rate, rhythm, no edema, no gallop, no JVD, no murmur, normal peripheral pulses Abdomen/GI: normal bowel sounds, non tender, soft Back: no muscle spasm, normal range of motion Extremities/Musculoskelatal: normal inspection, no calf tenderness, normal capillary refill, no pedal edema, normal range of motion Neurologic/Psych: 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, no motor/sensory deficits, alert, normal mood/affect, oriented x 3 Skin: normal color, warm/dry, no rash Lymphatic: no adenopathy Diagnostics Laboratory Results Results Past 24 Hours Test 08/22/17 21:55 08/22/17 22:00 Range/Units White Blood Count 7.27 4.8-10.8 K/uL Red Blood Count 4.60 4.2-5.4 M/uL Hemoglobin 15.1 12.0-16.0 g/dL Hematocrit 41.7 37-47 % Mean Corpuscular Volume 90.7 80-100 fL Mean Corpuscular Hemoglobin 32.8 25-34 pg Mean Corpuscular Hemoglobin Concent 36.2 32-36 g/dl Platelet Count 196 130-400 K/uL Mean Platelet Volume 9.9 7.4-10.4 fL Neutrophils (%) (Auto) 66.7 % Lymphocytes (%) (Auto) 20.9 % Monocytes (%) (Auto) 9.6 % Eosinophils (%) (Auto) 2.1 % Basophils (%) (Auto) 0.4 % Neutrophils # (Auto) 4.85 1.4-6.5 K/uL Lymphocytes # (Auto) 1.52 1.2-3.4 K/uL Monocytes # (Auto) 0.70 0.11-0.59 K/uL Eosinophils # (Auto) 0.15 0-0.5 K/uL Basophils # (Auto) 0.03 0-0.2 K/uL RDW Standard Deviation 41.7 36.4-46.3 fL RDW Coefficient of Variation 12.7 11.5-14.5 % Immature Granulocyte % (Auto) 0.3 % Immature Granulocyte # (Auto) 0.02 0.00-0.02 K/uL Sodium Level 140 136-145 mmol/L Potassium Level 3.4 3.5-5.1 mmol/L Chloride Level 108 98-107 mmol/L Carbon Dioxide Level 28 21-32 mmol/L Anion Gap 4.0 3-11 mmol/L Blood Urea Nitrogen 15 7-18 mg/dl Creatinine 0.85 0.60-1.20 mg/dl Est Creatinine Clear Calc Drug Dose 76.4 ml/min Estimated GFR () 102.9 Estimated GFR (Non- 88.8 BUN/Creatinine Ratio 17.4 10-20 Random Glucose 118 70-99 mg/dl Calcium Level 8.7 8.5-10.1 mg/dl Total Creatine Kinase 57 26-192 U/L Creatine Kinase MB < 0.5 0.5-3.6 ng/ml Creatine Kinase MB Ratio 0-3.0 Troponin I < 0.015 0-0.045 ng/ml Urine Opiates Screen NEG NEG Urine Methadone, Qualitative NEG NEG Urine Barbiturates NEG NEG Urine Phencyclidine (PCP) Level NEG NEG Ur Amphetamine/Methamphetamine NEG NEG MDMA (Ecstasy) Screen NEG NEG Urine Benzodiazepines Screen NEG NEG Urine Cocaine Metabolite NEG NEG Urine Marijuana (THC) NEG NEG Diagnostic Radiology CHEST ONE VIEW PORTABLE CLINICAL HISTORY: Chest pain. COMPARISON STUDY: Chest CT and chest radiograph July 31, 2017. FINDINGS: Lung volumes are at the upper limits of normal. There is no pneumothorax or pleural effusion. There is no consolidation or evidence for pulmonary edema. Cardiac size is normal. Mediastinal contours are normal. IMPRESSION: No acute cardiopulmonary findings. EKG Sinus tachycardia Possible Left atrial enlargement Nonspecific ST abnormality Impression Assessment and Plan This is a 36 year old female with a past medical history of anxiety - recently admitted in early July for palpitations/tachycardia - presents with similar symptoms. Tachycardia Induced EKG changes Anxiety - EKG changes noted with tachycardia - cardiac cath on July 31 - normal coronaries - given Toprol, BuSpar, Potassium and Ativan for HR control - will try to up-titrate both Toprol and Ativan - monitor in tele, repeat EKG in AM, trend cardiac enzymes - cardiology consulted Anxiety - Buspar - Ativan PRN; consider switching to Klonopin DVT ppx - Lovenox FULL CODE Resuscitation Status VTE Prophylaxis Will order VTE Prophylaxis: Yes
[2017-08-23] MEDS ORDERED: IV FLUIDS COMPLETED PRN (00:45)
--- NOTE | 2017-08-23 01:09 | EMERGENCY ROOM VISIT NOTE ---
History Report prepared by Gregibtiffany: Génesis Madera Under the Supervision of: Dr. Imtiaz Flores D.O. First contact with patient: 21:52 Chief Complaint: CHEST PAIN Stated Complaint: CHEST PAINS, SOB History of Present Illness The patient is a 36 year old female who presents to the Emergency Room with complaints of persistent chest pain that started at 1999 this evening. She rates her pain as a 7/10 in severity and reports she was folding a sheet after doing laundry when the pain started. She states in early July, while seeing a patient in the office as she is a [employer] at [employer], she developed chest pain. She had an EKG that showed ST depressions and came to the ED and had a complete cardiac workup. She underwent a cardiac catheterization but no blockages were found. She states since then, she has been having daily panic attacks. She admits to a history of anxiety, for which she takes 7.5 mg Buspar BID daily. This evening at 1999, she developed chest pain that has not gone away with .5 mg Ativan. The patient also admits to shortness of breath this evening. She does have a Mirena IUD in place. She denies any recent travel or long trips. Patient denies diabetes, hypertension, hyperlipidemia, CAD, history of sudden at a young age, and smoking. The patient has had no caffeine since early July. She reports she has not been exercising since the initial episode. Pt denies headache, change in vision, fevers, nausea, vomiting , diarrhea, pain with urination, and melena. Source of History: patient Onset: 1999 evening Position: chest Symptom Intensity: 7/10 Timing: other (persistent) Modifying Factors (Relieving): other (Ativan) Associated Symptoms: + SOB, No fevers, No headache, No nausea, No vomiting, No melena, No diarrhea, No urinary symptoms Review of Systems See HPI for pertinent positives & negatives. A total of 10 systems reviewed and were otherwise negative. Past Medical & Surgical Medical Problems: (1) Abdominal pain (2) Anxiety (3) Palpitations (4) UTI (urinary tract infection) Social History Smoking Status: Never Smoker Alcohol Use: occasionally Drug Use: none Marital Status: Housing Status: lives with family Occupation Status: employed Current/Historical Medications Scheduled Buspirone Hcl (Buspirone Hcl), 7.5 MG PO BID Levonorgestrel (Iud) (Mirena), 1 INT UTER CONTINOUS Metoprolol Succinate (Toprol Xl), 25 MG PO QAM Metoprolol Succinate (Toprol Xl), 12.5 MG PO QPM Potassium Chloride (Micro-K Ext Rel), 10 MEQ PO DAILY Scheduled PRN Lorazepam (Ativan), 0.5 MG PO UD PRN for Anxiety Allergies Coded Allergies: Ceftriaxone (Verified Allergy, Unknown, ., 08/22/17) Clindamycin (Verified Allergy, Unknown, ., 08/22/17) Physical Exam Vital Signs Date Time Temp Pulse Resp B/P (MAP) Pulse Ox O2 Delivery O2 Flow Rate FiO2 08/22/17 23:02 120 106/79 08/22/17 23:00 120 18 106/79 98 Room Air 08/22/17 22:00 101 18 116/70 98 Room Air 08/22/17 22:00 112 08/22/17 21:55 98 Room Air 08/22/17 21:46 36.7 118 20 142/83 98 Room Air Physical Exam GENERAL: Sitting up in bed, alert, anxious appearing, disheveled, well nourished , no distress, non-toxic EYE EXAM: normal conjunctiva. OROPHARYNX: no exudate, no erythema, lips, buccal mucosa, and tongue normal and mucous membranes are moist NECK: supple, no nuchal rigidity, no adenopathy, non-tender LUNGS: Clear to auscultation. Normal chest wall mechanics HEART: Tachycardic heart rate, regular rhythm, no murmurs, S1 normal and S2 normal ABDOMEN: abdomen soft, non-tender, normo-active bowel sounds, no masses, no rebound or guarding. BACK: Back is symmetrical on inspection and there is no deformity, no midline tenderness, no CVA tenderness. SKIN: no rashes and no bruising UPPER EXTREMITIES: upper extremities are grossly normal. LOWER EXTREMITIES: No pitting edema. Calves are equal bilaterally. NEURO EXAM: Normal sensorium, cranial nerves II-XII grossly intact, normal speech, no gross weakness of arms, no gross weakness of legs. Gross sensation intact. Medical Decision & Procedures ER Provider Diagnostic Interpretation: Radiology results as stated below per my review and the radiologist's interpretation: CHEST ONE VIEW PORTABLE CLINICAL HISTORY: Chest pain. COMPARISON STUDY: Chest CT and chest radiograph July 31, 2017. FINDINGS: Lung volumes are at the upper limits of normal. There is no pneumothorax or pleural effusion. There is no consolidation or evidence for pulmonary edema. Cardiac size is normal. Mediastinal contours are normal. IMPRESSION: No acute cardiopulmonary findings. Electronically signed by: Brandon Genao M.D. 08/22/2017 10:24 PM Laboratory Results 08/22/17 21:55 Red Blood Count 4.60, Mean Corpuscular Volume 90.7, Mean Corpuscular Hemoglobin 32.8, Mean Corpuscular Hemoglobin Concent 36.2, Mean Platelet Volume 9.9, Neutrophils (%) (Auto) 66.7, Lymphocytes (%) (Auto) 20.9, Monocytes (%) (Auto) 9.6, Eosinophils (%) (Auto) 2.1, Basophils (%) (Auto) 0.4, Neutrophils # (Auto) 4.85, Lymphocytes # (Auto) 1.52, Monocytes # (Auto) 0.70, Eosinophils # (Auto) 0.15, Basophils # (Auto) 0.03 08/22/17 21:55 Test 08/22/17 21:55 08/22/17 22:00 White Blood Count 7.27 K/uL (4.8-10.8) Red Blood Count 4.60 M/uL (4.2-5.4) Hemoglobin 15.1 g/dL (12.0-16.0) Hematocrit 41.7 % (37-47) Mean Corpuscular Volume 90.7 fL (80-100) Mean Corpuscular Hemoglobin 32.8 pg (25-34) Mean Corpuscular Hemoglobin Concent 36.2 g/dl (32-36) Platelet Count 196 K/uL (130-400) Mean Platelet Volume 9.9 fL (7.4-10.4) Neutrophils (%) (Auto) 66.7 % Lymphocytes (%) (Auto) 20.9 % Monocytes (%) (Auto) 9.6 % Eosinophils (%) (Auto) 2.1 % Basophils (%) (Auto) 0.4 % Neutrophils # (Auto) 4.85 K/uL (1.4-6.5) Lymphocytes # (Auto) 1.52 K/uL (1.2-3.4) Monocytes # (Auto) 0.70 K/uL (0.11-0.59) Eosinophils # (Auto) 0.15 K/uL (0-0.5) Basophils # (Auto) 0.03 K/uL (0-0.2) RDW Standard Deviation 41.7 fL (36.4-46.3) RDW Coefficient of Variation 12.7 % (11.5-14.5) Immature Granulocyte % (Auto) 0.3 % Immature Granulocyte # (Auto) 0.02 K/uL (0.00-0.02) Anion Gap 4.0 mmol/L (3-11) Est Creatinine Clear Calc Drug Dose 76.4 ml/min Estimated GFR () 102.9 Estimated GFR (Non- 88.8 BUN/Creatinine Ratio 17.4 (10-20) Calcium Level 8.7 mg/dl (8.5-10.1) Total Creatine Kinase 57 U/L (26-192) Creatine Kinase MB < 0.5 ng/ml (0.5-3.6) Creatine Kinase MB Ratio (0-3.0) Troponin I < 0.015 ng/ml (0-0.045) Urine Opiates Screen NEG (NEG) Urine Methadone, Qualitative NEG (NEG) Urine Barbiturates NEG (NEG) Urine Phencyclidine (PCP) Level NEG (NEG) Ur Amphetamine/Methamphetamine NEG (NEG) MDMA (Ecstasy) Screen NEG (NEG) Urine Benzodiazepines Screen NEG (NEG) Urine Cocaine Metabolite NEG (NEG) Urine Marijuana (THC) NEG (NEG) Laboratory results per my review. Medications Administered Medications (Trade) Dose Ordered Sig/Nubia Route Start Time Stop Time Status Last Admin Dose Admin Sodium Chloride 1,000 ml @ 999 mls/hr Q1H1M STAT IV 08/22/17 22:05 08/22/17 23:05 DC 08/22/17 22:08 999 MLS/HR Aspirin (Aspirin Chew) 324 mg NOW STAT PO 08/22/17 22:46 08/22/17 22:48 DC 08/22/17 22:53 324 MG Potassium Chloride (Klor-Con M10) 40 meq NOW STAT PO 08/22/17 22:46 08/22/17 22:48 DC 08/22/17 23:01 40 MEQ Metoprolol Tartrate (Lopressor Iv) 2.5 mg NOW STAT IV 08/22/17 22:55 08/22/17 22:56 DC 08/22/17 23:02 2.5 MG Lorazepam (Ativan Inj) 1 mg NOW STAT IV 08/22/17 23:04 08/22/17 23:05 DC 08/22/17 23:21 1 MG Sodium Chloride 1,000 ml @ 100 mls/hr Q10H IV 08/22/17 23:20 09/21/17 23:19 08/23/17 00:32 100 MLS/HR ECG Per My Interpretation Indication: chest pain Rate (beats per minute): 115 Rhythm: sinus tachycardia Findings: ST depression (Anterior, inferior, lateral leads), other (normal axis ) ED Course ED COURSE: Vital signs were reviewed and showed the patient is tachycardic The patients medical record was reviewed The above diagnostic studies were performed and reviewed. ED treatments and interventions as stated above. 2155: The patient was evaluated in room B2. A complete history and physical examination was performed. 2205: NSS 1000 ml @ 999 mls/hr IV. 2246: Potassium Chloride 40 meq PO, Aspirin 324 mg PO. 2248: I discussed the patients case with Dr. Burciaga, [facility] Cardiology. He recommends adding Lopressor to her medication regime and an evaluation by the hospital medicine team. 2255: Lopressor 2.5 mg IV. 2300: Upon reevaluation, the patient is resting comfortably. I discussed my findings with the patient and she understands and agrees with the treatment plan. 2304: Ativan 1 mg IV. 2307: I discussed the patients case with Dr. Rushing, [facility] Hospitalist. The patient will be further evaluated. Based on the patients age, coexisting illnesses, exam and lab findings the decision to treat as an inpatient was made. The patient remained stable while under my care. The patient will be evaluated for further management. Medical Decision Differential diagnoses includes but is not limited to acute coronary syndrome, myocardial infarction, pericarditis, pulmonary embolus, aortic dissection, pneumonia, pneumothorax, musculoskeletal, shingles, esophageal. Patient is a 36-year-old female who presents the ER for chest pain, shortness of breath and heart racing. She does have a history of anxiety. She was just admitted in early July for EKG changes associated with the symptoms. She had a cardiac cath on July 31 which was unremarkable. Her EKG normalized. She was discharged and placed on beta-mila. Since then her symptoms have been worsening and present every day. CBC along with BMP and troponin were negative. Mild hypokalemia. Tox was negative. Chest x-ray was unremarkable. EKG did show ST depressions in the inferior and anterior leads. This was dynamic as it improved as her heart rate trended down and she was given aspirin , Lopressor and Ativan. Her symptoms did improve. I discussed with cardiology at length and internal medicine. Patient was admitted for workup of acute EKG changes. I did not place her on a heparin drip as she recently had a negative cardiac cath. Medication Reconcilliation Current Medication List: was personally reviewed by me Blood Pressure Screening Patient's blood pressure: Normal blood pressure Blood pressure disposition: Did not require urgent referral Consults Time Called: 2239 Consulting Physician: [facility] Returned Call: [phone] I discussed the patients case with [facility]. He recommends adding Lopressor to her medication regime and an evaluation by the hospital medicine team. Additional Consults: Time Called: 2303 Consulted Physician: [facility] Returned Call: 2 Additional Comments: I discussed the patients case with [facility]. The patient will be further evaluated. Impression Primary Impression: Acute electrocardiogram changes Additional Impressions: Anxiety Tachycardia Scribe Attestation The scribe's documentation has been prepared under my direction and personally reviewed by me in its entirety. I confirm that the note above accurately reflects all work, treatment, procedures, and medical decision making performed by me. Departure Information Dispostion Being Evaluated By Hospitalist Referrals Savage Paige M.D. (PCP) Patient Instructions My [facility] Problem Qualifiers
[2017-08-23 04:00] VITALS: BP 115/68; PULSE 109; TEMP 36.3; O2SAT 96
[2017-08-23 06:00] LABS: HEMATOCRIT 39.7 % (37-47); HEMOGLOBIN 14.2 g/dL (12.0-16.0); MEAN CELL VOLUME 91.1 fL (80-100); MEAN CORPUSCULAR HEMOGLOBIN 32.6 pg (25-34); MEAN CORPUSCULAR HGB CONC 35.8 g/dl (32-36); MEAN PLATELET VOLUME 10.1 fL (7.4-10.4); PLATELET COUNT 168 K/uL (130-400); RED CELL DISTRIBUTION WIDTH CV 12.6 % (11.5-14.5)
[2017-08-23 06:30] VITALS: BP 109/66; PULSE 101; TEMP 36.8; O2SAT 98
[2017-08-23 06:32] LABS: BLOOD UREA NITROGEN 7 mg/dl (7-18); CARBON DIOXIDE 23 mmol/L (21-32); CREATININE 0.66 mg/dl (0.60-1.20); GLUCOSE 102 mg/dl (70-99); POTASSIUM 3.7 mmol/L (3.5-5.1); SODIUM 142 mmol/L (136-145)
[2017-08-23 08:00] VITALS: O2SAT 98
[2017-08-23] MEDS ORDERED: ENOXAPARIN 40 MG/0.4 ML SYR SC SCH (08:00)
[2017-08-23] MEDS ORDERED: LORAZEPAM 0.5 MG TAB PO PRN (08:30)
[2017-08-23] MEDS ORDERED: POTASSIUM CHLORIDE 10 MEQ TABCR PO SCH (09:00)
[2017-08-23] MEDS ORDERED: METOPROLOL SUCC 25MG EXT REL TAB PO SCH ×3 (09:00→21:00)
[2017-08-23 11:24] VITALS: BP 112/74; PULSE 83; TEMP 36.7; O2SAT 99
--- NOTE | 2017-08-23 11:25 | CARDIOLOGY CONSULTATION ---
DATE OF CONSULTATION: 08/23/2017 REFERRING PHYSICIAN: Dr. Enrrique Rushing REASON FOR CONSULTATION: Chest pain, abnormal ECG. CHIEF COMPLAINT ON ADMISSION: Palpitations, chest pain. HISTORY OF PRESENT ILLNESS: Ms. Benson is a 36-year-old female, recently admitted for chest pain and palpitations in early July 2017. She was noted to have dynamic ST segment changes during periods of discomfort and tachycardia. Due to these findings, she was taken to the cardiac catheterization lab on 07/31/2017. That study demonstrated normal coronary anatomy. I reviewed the images personally. No evidence of vasospasm or obstruction. The patient was started on beta-mila therapy. Celexa was discontinued due to risks of tachycardia and she was prescribed BuSpar for anxiety/panic attacks. The patient describes anxiety and panic attacks over the past week while at work. 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 She has used Ativan occasionally over the past week as well. On the day of admission, she noted worsening palpitations and chest discomfort. She was evaluated in the Emergency Department last evening and noted to have recurrent dynamic ST changes in the inferior and lateral leads. Her troponins are negative. She was treated with beta-mila therapy and her heart rate improved. Telemetry demonstrates sinus rhythm overnight. The patient reports resolution of symptoms. Her beta-mila was increased to 25 mg in the a.m., 12.5 mg in the evening, approximately 2 weeks ago. She voices concern regarding her prescription of BuSpar. She feels this may be exacerbating her panic attacks. She also voices concern regarding her borderline hypokalemia. Currently, she is otherwise asymptomatic. REVIEW OF SYSTEMS: The pertinent positives are as noted above. A comprehensive 10-system review is otherwise negative. PAST MEDICAL HISTORY: 1. Chest discomfort. 2. Sinus tachycardia. 3. Anxiety/panic attack. 4. Normal coronary anatomy. 5. Urinary tract infection. 6. Hypokalemia. PAST SURGICAL HISTORY: Cardiac catheterization on 07/31/2017 demonstrating normal coronary anatomy. SOCIAL HISTORY: A lifelong nonsmoker. She is employed as a physician's inventory assistant. She is . FAMILY HISTORY: Negative for premature CAD or sudden cardiac . ALLERGIES: ROCEPHIN, CLINDAMYCIN. HOME MEDICATIONS: 1. Buspirone 7.5 mg twice daily. 2. Mirena daily. 3. Toprol-XL 25 mg in the morning, 12.5 mg in the evening. 4. Potassium chloride 10 mEq daily. 5. Ativan 0.5 mg as needed for anxiety. DATA: ECG on admission is sinus tachycardia, 115 beats per minute with mild inferior and lateral ST depressions. Repeat ECG demonstrates normalization of ST segments. Chest x-ray on admission: No acute cardiopulmonary findings. LABORATORY DATA: Cardiac enzymes are negative x2 sets. White blood cell count 6.70, hemoglobin 14.2, platelet count is 168. Sodium 142, potassium 3.7, chloride 112, CO2 23, BUN 7, creatinine 0.66. Tox screen is negative. PHYSICAL EXAMINATION: VITAL SIGNS: Temperature is 36.8 degrees centigrade, pulse is 85 beats per minute and regular, respiratory rate is 16 breaths per minute, blood pressure 109/66, SaO2 is 98% on room air. GENERAL: NAD, healthy-appearing, awake, alert, and oriented x3. HEENT: Mucous membranes are moist. No scleral icterus. Conjunctivae are pink. NECK: Supple without JVD, no HJR, no carotid bruit. HEART: Regular with a normal S1, S2. There is no murmur, rub, or gallop. LUNGS: Clear without rales, rhonchi, or wheeze. ABDOMEN: Soft, nontender. No rebound or guarding. Normal bowel sounds. EXTREMITIES: Warm and dry. There is no clubbing, cyanosis, or edema. NEUROLOGIC: The neurologic exam demonstrates no focal motor deficit. FINAL IMPRESSION: 1. This is a 36-year-old female admitted with recurrent chest discomfort, tachycardia, with associated ECG abnormalities. Recent cardiac catheterization demonstrating normal coronary anatomy without evidence of catheter-induced vasospasm. Symptoms mildly improved with titration of beta-mila therapy, however, recurrent and associated with anxiety/panic attack. 2. Generalized anxiety disorder. 3. Hypokalemia. PLAN AND RECOMMENDATIONS: I had a long discussion with the patient regarding her ECG findings, symptoms, results of recent cardiac catheterization which I personally reviewed. We discussed transitioning from Toprol-XL to diltiazem CD. After a lengthy discussion, we have agreed to increase metoprolol to 25 mg twice daily. She will take this medication beginning today. As far as her anxiety medications, I have encouraged her to follow up with her PCP. Consider inpatient mental health evaluation for further recommendations as the patient voices a desire to discontinue buspirone at this time. I will defer that decision to internal medicine/mental health. Continue potassium supplementation as previously ordered. No further inpatient cardiac testing at this time. Thank you for allowing me to participate in the care of your patient. She will follow up with Dr. Vieyra as scheduled on August 31.
[2017-08-23] MEDS ORDERED: SERTRALINE HCL 50 MG TAB PO ONE (11:56)
[2017-08-23] MEDS ORDERED: ALPRAZOLAM 0.5 MG TAB PO PRN (12:00)
[2017-08-23] MEDS ORDERED: TPRSR25 PO (12:00)
[2017-08-23] MEDS ORDERED: ZLF50 PO (12:00)
[2017-08-23] MEDS ORDERED: ALPR0.5T PO (12:01)
--- NOTE | 2017-08-23 12:05 | Discharge Instructions ---
Discharge Instructions Date of Service August 23, 2017. Admission Reason for Admission: Acute Electrocardiogram Changes, Palpitations Discharge Discharge Diagnosis / Problem: palpitations. uncontrolled anxiety Discharge Goals Goal(s): Decrease discomfort, Increase independence, Prevent Disease Progression Activity Recommendations Activity Limitations: per Instructions/Follow-up section . Instructions / Follow-Up Instructions / Follow-Up Please take all medications as instructed on discharge list. Please note changes to your medications including discontinuation of BuSpar and Ativan with changes to Toprol dosing. Please also note the addition of new medications including sertraline and Xanax to be used as instructed. It is recommended you follow-up with your primary care doctor within 1 week of discharge from the hospital. Someone from our staff will be in contact with you tomorrow to set this up. It was a pleasure taking care of you! Call if you have any questions or problems. You can reach a [facility] hospitalist on duty at [facility] 24 hours a day by calling [phone]. Take care of yourself. Janel Castillo DO [facility] Current [facility] Diet Patient's current hospital diet: AHA Diet (Heart Healthy) Discharge Diet Recommended Diet: Regular Diet Procedures Procedures Performed: None. Pending Studies Studies pending at discharge: no Laboratory Results Hemoglobin A1c Test 07/31/17 03:30 Range/Units Estimated Average Glucose 97 mg/dl Hemoglobin A1c 5.0 4.5-5.6 % Medical Emergencies . Who to Call and When: Medical Emergencies: If at any time you feel your situation is an emergency, please call 911 immediately. . Non-Emergent Contact Non-Emergency issues call your: Primary Care Provider . . "Provider Documentation" section prepared by Janel Castillo. . [place] Drug Monitoring Program Search Results: patient reviewed within database, no issues identified
--- NOTE | 2017-08-23 12:11 | Discharge Summary ---
Discharge Summary Date of Service August 23, 2017. Discharge Summary Admission Date: August 22, 2017 at 23:40 Discharge Date: August 23, 2017 Discharge Disposition: Home Principal Diagnosis: Tachycardia Uncontrolled anxiety Procedures: None. Vaccinations: None. Consultations: Cardiology-Dr. Gavino Burciaga Pending Studies/Follow-Up: see instructions below. Medication Reconciliation New Medications: Alprazolam (Xanax) 0.5 Mg Tab 1 TAB PO TID PRN for anxiety/panic attack for 30 Days, #30 TAB Metoprolol Succinate (Metoprolol Succinate ER) 25 Mg Tabcr 25 MG PO BID for 30 Days, #60 TAB Sertraline HCl (Sertraline HCl) 50 Mg Tab 25 MG PO QAM for 30 Days, #30 TAB Continued Medications: Levonorgestrel (Iud) (Mirena) 20 Mcg/24 Hr Iud 1 INT UTER CONTINOUS Potassium Chloride (Micro-K Ext Rel) 10 Meq Cap 10 MEQ PO DAILY for 30 Days, #30 CAP Discontinued Medications: Buspirone Hcl (Buspirone Hcl) 7.5 Mg Tab 7.5 MG PO BID Lorazepam (Ativan) 0.5 Mg Tab 0.5 MG PO UD PRN for Anxiety, TAB Metoprolol Succinate (Toprol Xl) 25 Mg Tabcr 25 MG PO QAM, #30 TAB Metoprolol Succinate (Toprol Xl) 25 Mg Tabcr 12.5 MG PO QPM, #30 TAB Admission Information HPI (per Admitting provider): This is a 36 year old female with a past medical history of anxiety - recently admitted in early July for palpitations/tachycardia - presents with similar symptoms. On July 31, she had a cardiac catheterization performed because of EKG changes ( ST depression noted on inferior leads). No acute findings at that time; noted to have tachycardia and hypokalemia - was started on Toprol and Potassium. Primary care started patient on Ativan PRN and BuSpar for anxiety. Presented to the ED again with palpitations/tachycardia. EKG changes again noted. Cardiology called - recommendation made to control HR. Physical Exam (per Admitting): General Appearance: no apparent distress Head: normocephalic, atraumatic Eyes: normal inspection ENT: hearing grossly normal Neck: supple, no adenopathy, thyroid normal, no JVD Respiratory/Chest: chest non-tender, lungs clear, normal breath sounds, no respiratory distress, no accessory muscle use Cardiovascular: regular rate, rhythm, no edema, no gallop, no JVD, no murmur , normal peripheral pulses Abdomen/GI: normal bowel sounds, non tender, soft Back: no muscle spasm, normal range of motion Extremities/Musculoskelatal: normal inspection, no calf tenderness, normal capillary refill, no pedal edema, normal range of motion Neurologic/Psych: briar cutter II-XII nml as tested, no motor/sensory deficits, alert , normal mood/affect, oriented x 3 Skin: normal color, warm/dry, no rash Lymphatic: no adenopathy Hospital Course 36-year-old female presents to the emergency room with persistent chest pain and palpitations that began earlier that evening. She had a recent history of this in early July and underwent cardiac catheterization after EKG changes were seen. The cardiac catheterization was normal. In the ER she reported pain onset after doing laundry. She reports that since discharge she had been changed from Celexa to BuSpar and felt that she was having daily panic attacks. She admits to a history of anxiety and has taken SSRIs for the last 6 years. She did try to take some Ativan but this was unsuccessful in controlling her anxiety and pain. In the ER blood pressure was 142/83 pulse 118. She was afebrile and oxygenating 98% on room air. On physical exam she was sitting up in bed, alert, anxious appearing, disheveled but in no acute distress. Heart exam revealed tachycardic heart rate, regular rhythm, no murmurs with normal heart sounds. Chest x-ray was normal. Lab work was unremarkable. Cardiac enzymes were normal. EKG revealed ST depressions in V3 through V5 which resolved after administration of Lopressor 2.5 IV. She was also given Ativan 1 mg IV and was admitted to the hospitalist service. Overnight there were no events on telemetry in heart rate resolved into the 60s-80s. Troponin was trended and was negative. She was evaluated by cardiology in the morning. Her Lopressor was increased. As the BuSpar was causing significant problems for her she was switched to Zoloft 25 mg every morning. She was also changed from Ativan to Xanax more short-acting and appropriate for panic attacks. On day of discharge she was hemodynamically stable and afebrile, mentating and ambulating at baseline, and tolerating p.o. She was discharged in stable condition with close PCP follow-up. Total time spent on discharge = 60 minutes This includes examination of the patient, discharge planning, medication reconciliation, and communication with other providers. Discharge Instructions [facility] [address] [place] [address] Discharge Medical Patient Name: Anjana Benson Unit Number: [id number] Date of : 1980 Patient Status: Admitted Inpatient (obs) Attending Doctor: Janel Castillo DO DI: Medical v5 Discharge Instructions Date of Service August 23, 2017. Admission Reason for Admission: Acute Electrocardiogram Changes, Palpitations Discharge Discharge Diagnosis / Problem: palpitations. uncontrolled anxiety Discharge Goals Goal(s): Decrease discomfort, Increase independence, Prevent Disease Progression Activity Recommendations Activity Limitations: per Instructions/Follow-up section . Instructions / Follow-Up Instructions / Follow-Up Please take all medications as instructed on discharge list. Please note changes to your medications including discontinuation of BuSpar and Ativan with changes to Toprol dosing. Please also note the addition of new medications including sertraline and Xanax to be used as instructed. It is recommended you follow-up with your primary care doctor within 1 week of discharge from the hospital. Someone from our staff will be in contact with you tomorrow to set this up. It was a pleasure taking care of you! Call if you have any questions or problems. You can reach a [facility] hospitalist on duty at [facility] 24 hours a day by calling [phone]. Take care of yourself. Janel Castillo DO [facility] Hospitalist Current Hospital Diet Patient's current hospital diet: AHA Diet (Heart Healthy) Discharge Diet Recommended Diet: Regular Diet Procedures Procedures Performed: None. Pending Studies Studies pending at discharge: no Laboratory Results Hemoglobin A1c Test 07/31/17 03:30 Range/Units Estimated Average Glucose 97 mg/dl Hemoglobin A1c 5.0 4.5-5.6 % Medical Emergencies . Who to Call and When: Medical Emergencies: If at any time you feel your situation is an emergency, please call 911 immediately. . Non-Emergent Contact Non-Emergency issues call your: Primary Care Provider . . "Provider Documentation" section prepared by Janel Castillo. . [place] Drug Monitoring [place] Search Results: patient reviewed within database, no issues identified Additional Copies To Savage Paige M.D.
[2017-08-23 12:40] VITALS: BP 112/74; PULSE 83; TEMP 36.7; O2SAT 99
[2017-08-24] MEDS ORDERED: SERTRALINE HCL 50 MG TAB PO SCH (09:00)
== END 2017-08-23 13:07 | disposition home or self-care (01) ==
LOC: C.EDB 21:39 → ENRESERV 23:36 → C.2T 23:40
PROVIDERS: ADMIT Family Medicine; ATTEND Hospitalist
DX: R00.0 Tachycardia, unspecified (principal); F41.1 Generalized anxiety disorder; E87.6 Hypokalemia; Z88.1 Allergy status to other antibiotic agents; Z79.82 Long term (current) use of aspirin; Z87.440 Personal history of urinary (tract) infections

== ENCOUNTER 2019-12-21 08:54 | Inpatient (IN) ==
[2019-12-21] MEDS ORDERED: OXYTOCIN 30 UNITS/500 ML BAG IV PRN ×2 (09:48→15:16)
[2019-12-21] MEDS ORDERED: SODIUM CHLORIDE 0.9% 250 ML IV PRN (09:48)
[2019-12-21] MEDS ORDERED: ONDANSETRON INJ 2 MG/ML 2 ML VIAL IV PRN ×2 (09:56→10:58)
[2019-12-21 10:13] LABS: Hematocrit (blood only) 36.9 % (37-47); Hemoglobin 12.8 g/dL (12.0-16.0); Mean Corpuscular Hemoglobin 33.7 pg (25-34); Mean Corpuscular Hgb Conc 34.7 g/dL (32-36); Mean Corpuscular Volume 97.1 fL (80-100); Mean Platelet Volume 10.5 fL (7.4-10.4); Platelet Count 159 K/uL (130-400); RDW Coefficient of Variation 13.2 % (11.5-14.5); RDW Standard Deviation 46.6 fL (36.4-46.3); White Blood Count 6.28 K/uL (4.8-10.8)
--- NOTE | 2019-12-21 10:33 | History & Physical Report ---
Date of Service December 21, 2019 Assessment & Plan (1) Hyperemesis affecting , antepartum: (2) Supervision of elderly multigravida, antepartum: 39yo at 37.1 weeks GA. Patient grossly ruptured on exam. 1. Fetus: Cat 1 2. Labor: Regular mild contractions. Discussed augmentation vs expectant care for 6 hours. Opted for expectant management . 3. Vitals: WNL 4. 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 PPH cart near room at delivery. Discussed risk of morbidly adherent placenta and possibility of hysterectomy. 5. Epidural PRN (3) Asherman's syndrome: Admission and Anticipated Discharge Date Admission Date: December 21, 2019 History of Present Illness Primary Care Provider: Savage Paige MD 39yo at 37.1 weeks GA. Present with ROM. Patient grossly ruptured on exam. complicated by hyperemesis gravidarum with Zofran pump and PICC line. Hx of Asherman syndrome with normal appearing US of placenta. OB Labs: Blood Type O Positive 04/19/18 Hemoglobin 12.1 g/dL (12.0-16.0) 10/27/19 Hematocrit 35.2 % (37-47) L 10/27/19 Mean Corpuscular Volume 91.2 fL (80-100) 06/10/19 Platelet Count 159 K/uL (130-400) 06/10/19 Glucose 1 Hour 50 gm Load 130 mg/dl (70-130) 10/27/19 OB Optional Labs: Thyroid Stimulating Hormone (TSH) 2.370 uIu/ml (0.300-4.500) 08/23/17 Labs Reviewed: 07/27/19 Profile HIV Negative Hep B surface AG Negative RPR Non reactive Rubella Positive H&H 32.7/11.6 PLT 169 Type & Screen O positive Antibody screen Negative Urine culture <10,000 colonies mixed normal gayatri Chlam/GC Negative 06/30/19 Panorama Low Risk 07/27/19 AFP Screen negative 05/07/17 Pap WNL Allergies Allergy/AdvReac Type Severity Reaction Status Date / Time ceftriaxone Allergy Severe Anaphylaxis Verified 12/16/19 13:36 clindamycin Allergy Severe Difficulty Verified 12/16/19 13:36 Breathing Home Medications Home Medications Medication Instructions Recorded Confirmed Type sertraline [Zoloft] 75 mg PO PM 01/10/19 12/21/19 History docusate sodium 100 mg capsule 100 mg PO DAILY 09/23/19 12/21/19 History prenat.vits,vivek,ssa-psfz-avvji 1 tab PO DAILY 09/23/19 12/21/19 History zofran See Rx Instructions .ROUTE 10/05/19 12/21/19 Rx .COMPLEX #1 ea polyethylene glycol 3350 [Miralax] 17 g PO Q OTHER DAY 12/21/19 12/21/19 History promethazine 12.5 mg PO DAILY PRN 12/21/19 12/21/19 History Patient History Medical History Abdominal pain Acute electrocardiogram changes Anxiety 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 Echo and cath done, WNL. History of chicken pox Missed Raynaud disease Retained products of conception Status post hysteroscopy Tachycardia Symptomatic. On BB. UTI (urinary tract infection) Surgical History History of cardiac cath 07/2017. For ST changes with sinus tachycardia. No stents. Normal coronaries. S/P dilatation and curettage S/P wisdom tooth extraction Family History Father Mitral valve prolapse Mother Hepatitis B Cervical cancer Other No pertinent family history in first degree relatives Social History (Updated 09/23/19 @ 09:06 by Gianna Jones) Smoking Status: Never smoker Hx Alcohol Use: No Hx Substance Use: No Preferred Language: Belizean Communication Ability: Effective Utility Division Project Manager Required: No Beliefs That Will Affect Care: None marital status: marital status details: Chao Campoverde (38) Current Living Situation: Spouse Current Living Situation Comment: lives with spouse, son, dog, cat-spouse changing litter current occupational status: unemployed current occupation: [employer] How many Children do You have: 1 Feels Safe at Home: Yes Safety Concerns: Feels Safe At This Time Assistive Devices: None Physical Exam Genitourinary: Manual OB Exam: + cervical dilation 3 cm, + cervical effacement 80%, + station -2 and + amniotic fluid bloody and ferning present OB Exam Monitor Tracing: + external FHT monitor used, + external uterine monitor used, + category I and + normal FHT variability; no early decelerations present, no late decelerations present and no variable decelerations Results & Data ([facility]) Vital Signs (Past 12 Hours) Vital Signs Temp Pulse Resp BP 12/21/19 09:28 36.4 C L 88 16 115/62 12/21/19 09:04 88 115/62 Coding Level of Care Code None Diagnoses Hyperemesis affecting , antepartum O21.0 Supervision of elderly multigravida, antepartum O09.529 Asherman's syndrome N85.6
[2019-12-21] MEDS ORDERED: BUPIVACAINE 0.25% 30 ML VIAL ONE (10:45)
[2019-12-21] MEDS ORDERED: ePHEDrine sulfate 50 MG/ML AMP ONE (10:45)
[2019-12-21] MEDS: LACTATED RINGER'S 1,000 ML IV PRN ×2 (10:45→12:04)
[2019-12-21] MEDS ORDERED: fentaNYL citrate 100 MCG/2 ML VIAL ONE (10:45)
[2019-12-21] MEDS ORDERED: fentaNYL 2MCG/ML ROPIV 1.25MG/ML 100 ML BAG EPI ONE (10:46)
[2019-12-21] MEDS ORDERED: NALOXONE HCL 1 MG in SODIUM CHLORIDE 0.9% 1000ML 1,000 ML IV PRN (10:58)
[2019-12-21] MEDS ORDERED: fentaNYL 2MCG/ML ROPIV 1.25MG/ML 100 ML BAG EPI PRN (10:58)
[2019-12-21] MEDS ORDERED: DiphenhydrAMINE HCL 50 MG/ML VIAL IV PRN (10:58)
[2019-12-21] MEDS ORDERED: ePHEDrine sulfate 50 MG/ML AMP IV PRN (10:58)
[2019-12-21] MEDS ORDERED: NALOXONE HCL 0.4 MG/1 ML VIAL/CARP IV PRN (10:58)
--- NOTE | 2019-12-21 10:58 | Anesthesiology Consultation ---
Date of Service December 21, 2019 Assessment & Plan (1) Encounter for pre-operative examination: Chart Review Chart Review: Patient NOT seen in Pre Admission Testing and Acceptable Risk for Labor Epidural Consults Requested none ASA ASA3 Proposed Anesthesia Anesthesia Type: Labor Epidural Risk / Benefits Reviewed With: PT / POA / Parent / Guardian, Accepts Plan and Informed Consent Obtained History Height/Weight Height: 5 ft 3 in Weight: 62.596 kg Allergies Allergy/AdvReac Type Severity Reaction Status Date / Time ceftriaxone Allergy Severe Anaphylaxis Verified 12/16/19 13:36 clindamycin Allergy Severe Difficulty Verified 12/16/19 13:36 Breathing Medications Home Medications Medication Instructions Recorded Confirmed Last Taken sertraline [Zoloft] 75 mg PO PM 01/10/19 12/21/19 12/20/19 18:00 docusate sodium 100 mg capsule 100 mg PO DAILY 09/23/19 12/21/19 12/20/19 18:00 prenat.vits,vivek,lot-tnhn-lhdwk 1 tab PO DAILY 09/23/19 12/21/19 Unknown zofran See Rx Instructions .ROUTE 10/05/19 12/21/19 12/21/19 09:27 .COMPLEX #1 ea polyethylene glycol 3350 [Miralax] 17 g PO Q OTHER DAY 12/21/19 12/21/19 Unknown promethazine 12.5 mg PO DAILY PRN 12/21/19 12/21/19 Unknown NPO Date Last Intake of Fluids: 01/04/20 Time Last Intake of Fluids: 10:54 Date Last Intake of Solids: 12/21/19 Time Last Intake of Solids: 07:30 Past Medical History Medical History Abdominal pain Acute electrocardiogram changes Anxiety 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 Echo and cath done, WNL. History of chicken pox Missed Raynaud disease Retained products of conception Status post hysteroscopy Tachycardia Symptomatic. On BB. UTI (urinary tract infection) Exercise / Class Metabolic Activity II 4-5 Yardwork/Stairs/Walk up hill Past Family History Family History Father Mitral valve prolapse Mother Hepatitis B Cervical cancer Other No pertinent family history in first degree relatives Past Surgical History Surgical History History of cardiac cath 07/2017. For ST changes with sinus tachycardia. No stents. Normal coronaries. S/P dilatation and curettage S/P wisdom tooth extraction Past Anesthesia History No Hx of Anesthesia Complications History of PONV No Hx of PONV Social History Smoking Status: Never smoker Hx Alcohol Use: No Hx Substance Use: No Review of Systems Negative for chest pain or shortness of breath. Patient denies active symptoms of GERD. Patient denies numbness, tingling or weakness in lower extremities. Patient denies history of abnormal bleeding or bleeding disorder. Patient denies active use of anticoagulants other than low dose aspirin. Physical Exam Vital Signs Last Vital Signs Temp 36.4 C L 12/21/19 09:28 Pulse 88 12/21/19 09:28 Resp 16 12/21/19 09:28 BP 115/62 12/21/19 09:28 Constitutional not obese (gravd uterus) ENMT Mouth: no TMJ abnormality and oral opening not small Thyromental Distance: > or= 3.5 Finger Breadths Mallampati Class: II Neck normal visual inspection; neck extension not limited Respiratory normal respiratory effort Auscultation: lungs clear to auscultation bilaterally Cardiovascular Rate/Rhythm: regular rate and regular rhythm Heart Sounds: no murmur Neurologic moves all extremities Motor/Sensory: no sensory deficit Psychiatric Orientation: alert and oriented x 3 Testing Laboratory Results 12/21/19 09:57
--- NOTE | 2019-12-21 13:27 | Electrocardiogram Report ---
Test Reason : Blood Pressure : / mmHG Vent. Rate : 077 BPM Atrial Rate : 077 BPM P-R Int : 118 ms QRS Dur : 070 ms QT Int : 380 ms P-R-T Axes : 071 081 078 degrees QTc Int : 430 ms Normal sinus rhythm Low voltage QRS Borderline ECG When compared with ECG of 10-JAN-2019 10:39, ST no longer depressed in Inferior leads Confirmed by Noe Gilbert ([id number]) on 12/21/2019 1:27:39 PM Referred By: REFERRED SELF Confirmed By:Noe Gilbert
[2019-12-21] MEDS ORDERED: BENZOCAINE 20% AER SPR 82.5 GM CAN EXT PRN (15:16)
[2019-12-21] MEDS ORDERED: SUPERCREAM 0.870% 15 GM JAR EXT PRN (15:16)
[2019-12-21] MEDS ORDERED: ACETAMINOPHEN 325 MG TAB PO PRN (15:16)
[2019-12-21] MEDS ORDERED: bisacodyL 10 MG SUPP PR PRN (15:16)
[2019-12-21] MEDS ORDERED: HYDROCORTISONE ACETATE 25 MG SUPP PR PRN (15:16)
[2019-12-21 15:32] LABS: Base Excess Cord Venous Blood -4.5 mEq/L (-7.7-1.9); Cord Venous Blood HCO3 24 mmol/L (18.4-26.8); Cord Venous Blood PCO2 61 mmHg (30.4-57.2); Cord Venous Blood PO2 23 mmHg (14.1-43.3); Cord Venous Blood pH 7.22 (7.20-7.44)
[2019-12-21 15:33] LABS: O2 Saturation Cord Venous Bld < 60.0 % (<68)
--- NOTE | 2019-12-21 16:55 | Anesthesia Procedure Note ---
Date of Service December 21, 2019 Anesthesia Post Epidural Note Vital Signs Vital Signs: Temp Pulse Resp BP Pulse Ox 36.4 C L 70 20 117/64 99 12/21/19 13:15 12/21/19 16:44 12/21/19 16:29 12/21/19 16:44 12/21/19 15:12 Notes Mental Status: alert / awake / arousable and participated in evaluation Nausea / Vomiting: adequately controlled Pain: adequately controlled Airway Patency, RR, SpO2: stable & adequate BP & HR: stable & adequate Hydration State: stable & adequate Neuraxial Anesthesia: was administered and sensory block is resolving Anesthetic Complications: no major complications apparent and Pt Satisfied with anesthetic care Epidural: Removed without complications and With tip intact Notes: Epidural site clean, dry and intact. No signs of edema, erythema or bruising at insertion site. Pt instructed to request anesthesia if she has residual lower extremity numbness or if she develops lower extremity pain or weakness, back pain or headache.
[2019-12-21] MEDS: IBUPROFEN 600 MG TAB PO PRN ×2 (17:09→21:51)
--- NOTE | 2019-12-21 17:28 | Delivery Summary ---
DATE OF OPERATION: 12/21/2019 PROCEDURE: Normal spontaneous vaginal delivery with second-degree perineal laceration repair and periurethral laceration repair. SURGEON: Zia Roberts MD. WOOL BATTING WORKER: Harsh Anthony, PGY-1. ESTIMATED BLOOD LOSS: 400 mL. DRAINS: Straight cath at the completion of the case. URINE OUTPUT: Approximately 300 mL at the completion of the case. COMPLICATIONS: None. FINDINGS: Viable female infant with weight and final Apgars pending. INDICATIONS: Anjana is a 39-year-old G3, P1-0-1-1, admitted at 37 weeks 1 day gestational age for spontaneous rupture of membranes. At the time of evaluation, the patient was found to be 3 cm dilated, 80% effaced, -2 station. She has opted for expectant management and was noted to go into labor soon after admission spontaneously. The patient labored without additional augmentation. She received an epidural for anesthesia and progressed to complete-complete +2 station, at which time she felt a strong urge to push. The patient pushed for approximately 20-25 minutes to achieve delivery. DESCRIPTION OF PROCEDURE: The patient progressed to 10 cm dilated, 100% effaced, +2 station, pushed over intact perineum with epidural anesthesia and delivered a viable female with weight and Apgars as noted above. Head of the delivered in TU position, restituted to left transverse. No nuchal cord was noted. Body and shoulders quickly followed. was noted to have good tone and was pink on delivery, but was not noted to have a cry. Stimulation was continued due to good tone and pinking for approximately 45 seconds, after which time the cord was double clamped and cut and was taken to the waiting nursery staff for further evaluation. Cord segment and cord blood was then obtained. Attention was then turned to the delivery of the placenta, which delivered intact with 3-vessel cord with just very gentle cord traction. On inspection of the perineum, vagina, and cervix, there was noted to be a second degree perineal laceration, which was repaired in traditional crown stitch with 3-0 Vicryl. The periurethral laceration was repaired with 3-0 Vicryl in interrupted stitch. Needle, sponge and instrument counts were correct at the completion of the case. Both mother and were stable in the immediate post-delivery period. I attest to the content of the Intraoperative Record and any orders documented therein. Any exception s are noted below.
[2019-12-21] MEDS ORDERED: SERTRALINE HCL 50 MG TABLET PO SCH (21:00)
[2019-12-21] MEDS: SERTRALINE HCL 100 MG TABLET PO SCH (21:48)
[2019-12-21] MEDS: DOCUSATE SODIUM 100 MG CAP PO SCH (21:48)
--- NOTE | 2019-12-22 05:35 | Obstetrical Progress Note ---
Date of Service December 22, 2019 Assessment & Plan (1) Supervision of elderly multigravida, antepartum: S/p after PROM, Day 1 - Feels well today. Eating well, voiding well, ambulating well. - Pain well-controlled with ibuprofen 600mg Q4H PRN. - Vital signs reviewed and WNL. - Hemoglobin reviewed. 12.8 --> 9.9 (today). - Blood Type: O+, antibody negative, GBS negative, Rubella Immune, COVID-19 negative - Continue routine post- care: encourage ambulation, monitor and control pain with Motrin PRN, continue regular OB diet, monitor lochia - Encourage breast feeding. - went over discharge instructions with patient today - After discharge, will have 6-wk follow-up with Graciela Mora [employer]ESS SAFETY MANAGER Admission and Anticipated Discharge Date Admission Date: December 21, 2019 Supervising Physician Co-Signing Physician Notes Patient seen and evaluated and agree with the above findings and plan. 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 She reports feel ing well overall this morning. No abdominal cramping and 1-4/10 pain well managed on analgesics. Voiding well. Tolerating meals overnight without difficulty. Patient has been able to ambulate some. passing gas and no bowel movement. Has persistent lochia with some improvement this morning. Currently . Review of Systems Review of Systems: ROS Denies fever or chills. Denies shortness of breath or cough. Denies chest pain. Denies breast pain. Denies dysuria. Denies leg pain or leg swelling. Physical Exam Physical Exam: PE General: Alert, oriented. No acute distress. Cardiac: Regular rate and rhythm. No murmurs. Respiratory: Clear to auscultation bilaterally a/p, no wheezes/rales/rhonchi. No increased work of breathing. Symmetrical chest rise. No respiratory distress. Abdomen: Soft, nontender, nondistended. Bowel sounds present. Uterus: Uterine fundus firm, palpable at umbilicus. Lower Extremities: No lower extremity edema or swelling. No deep calf pain. Iraida's negative bilaterally. Results & Data ([facility]) Vital Signs (Past 12 Hours) Vital Signs Temp Pulse Resp BP 12/21/19 23:50 36.9 C 64 20 109/66 12/21/19 19:35 36.9 C 65 20 123/67 Resident Activity Tracking Resident Involvement: Resident Care Provided Care Provided: OB Delivery
[2019-12-22 05:55] LABS: Hematocrit (blood only) 29.2 % (37-47); Hemoglobin 9.9 g/dL (12.0-16.0)
[2019-12-22] MEDS: FERROUS SULFATE 325 MG TAB PO SCH (08:31)
[2019-12-22] MEDS: PRENATAL VITAMIN 1 TAB PO SCH (08:31)
[2019-12-22] MEDS: DOCUSATE SODIUM 100 MG CAP PO SCH ×2 (08:31→19:42)
[2019-12-22] MEDS: IBUPROFEN 600 MG TAB PO PRN ×3 (08:31→19:42)
[2019-12-22] MEDS ORDERED: DIPHTHERIA/TETANUS/PERTUSSIS 0.5 ML SYR/VIAL IM ONE (09:00)
[2019-12-22] MEDS: SERTRALINE HCL 100 MG TABLET PO SCH (19:42)
[2019-12-22] MEDS ORDERED: bisacodyL 5 MG TABEC PO SCH (20:00)
--- NOTE | 2019-12-23 04:38 | Obstetrical Progress Note ---
Date of Service December 23, 2019 Assessment & Plan (1) Supervision of elderly multigravida, antepartum: S/p after PROM, Day 2 - Feels well today. Eating well, voiding well, ambulating well. - Pain well-controlled with ibuprofen 600mg Q4H PRN. - Vital signs reviewed and WNL. - Hemoglobin reviewed. 12.8 --> 9.9 (yesterday). - Blood Type: O+, antibody negative, GBS negative, Rubella Immune, COVID-19 negative - Continue routine post- care: encourage ambulation, monitor and control pain with Motrin PRN, continue regular OB diet, monitor lochia - Encourage breast feeding. - went over discharge instructions with patient today - After discharge, will have 6-wk follow-up with Graciela Mora DI[employer]OND WHEEL EDGER Admission and Anticipated Discharge Date Admission Date: December 21, 2019 Supervising Physician Co-Signing Physician Notes Resident Physician Supervision Note: I was present with Dr. Anthony during the history and exam. I discussed the case with the resident and agree with the findings and plan as documented in the note. Any exceptions or clarifications are listed here: PPD#2 doing well. DC instructions reviewed, DC home. Followup 6w in office. 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 She reports feeling well overall this morning. No abdominal cramping and 0-1/10 pain well managed on analgesics. Voiding well. Tolerating meals overnight without difficulty. Patient has been able to ambulate some. passing gas and no bowel movement. Has persistent lochia with some improvement this morning. Currently . Review of Systems Review of Systems: ROS Denies fever or chills. Denies shortness of breath or cough. Denies chest pain. Denies breast pain. Denies dysuria. Denies leg pain or leg swelling. Physical Exam Physical Exam: PE General: Alert, oriented. No acute distress. Cardiac: Regular rate and rhythm. No murmurs. Respiratory: Clear to auscultation bilaterally a/p, no wheezes/rales/rhonchi. No increased work of breathing. Symmetrical chest rise. No respiratory distress. Abdomen: Soft, nontender, nondistended. Bowel sounds present. Uterus: Uterine fundus firm, palpable 2cm below umbilicus. Lower Extremities: No lower extremity edema or swelling. No deep calf pain. Iraida's negative bilaterally. Results & Data ([facility]) Vital Signs (Past 12 Hours) Vital Signs Temp Pulse Resp BP Pulse Ox 12/23/19 01:00 36.8 C 72 18 105/65 12/22/19 19:35 36.8 C 77 16 112/70 98 Resident Activity Tracking Resident Involvement: Resident Care Provided Care Provided: OB Delivery
[2019-12-23] MEDS: DOCUSATE SODIUM 100 MG CAP PO SCH (08:01)
[2019-12-23] MEDS: PRENATAL VITAMIN 1 TAB PO SCH (08:02)
[2019-12-23] MEDS: FERROUS SULFATE 325 MG TAB PO SCH (08:02)
[2019-12-23] MEDS: IBUPROFEN 600 MG TAB PO PRN (08:23)
== END 2019-12-23 11:05 | disposition home or self-care (01) | DRG 807 ==
LOC: OPB 08:54 → 4S1 08:55 → 4S2 18:30